=== PATIENT | male | born 1940 | race Caucasian/White ===

== ENCOUNTER → 2016-07-06 | Day surgery (SDC) | payer BC ==
[2016-06-23 09:04] VITALS: Ht 175.3 cm; Wt 72.7 kg
[~2016-07-06] VITALS: Ht 175.3 cm; Wt 72.7 kg
[~2016-07-06] MED LIST: ASPI81TA28 PO; ATOR-26 PO; CARV12.52 PO; LIDOCAINE HCL 2% 2 ML VIAL (20MG/ML) ONE; LISI20TA3 PO; MULT-506 PO; OMEG10007 PO; PARO1TAB27 PO; PROPOFOL IV EMULSION 10 MG/ML 20 ML VIAL IV ONE; RABE20TA5 PO; SODIUM CHLORIDE 0.9% 500ML 500 ML IV ONE
--- NOTE | 2016-07-06 14:15 | Endo History and Physical ---
History & Physical Date of Service: Jul 06, 2016. Chief Complaint: Barretts Referring Physician: Dr Aguirre History of Present Illness 76 yo CM who presents for EGD secondary to Inman's Esophagus. Past Surgical History Hx Cardiac Surgery: Yes (CABG-4 VESSELS, HEART CATH-NO STENTS) Hx Internal Defibrillator: No Hx Pacemaker: No Hx Abdominal Surgery: No Hx of Implantable Prosthesis: No Hx Post-Op Nausea and Vomiting: No Hx Cancer Surgery: No Hx Thoracic Surgery: No Hx Orthopedic: No Hx Urinary Tract Surgery: No Family History None Social History Smoking Status: Light Tobacco Smoker Hx Substance Use: No Hx Alcohol Use: No Allergies Coded Allergies: No Known Allergies (Unverified , 06/23/16) Current Medications Reported Home Medications Medications Dose Route/Sig Max Daily Dose Days Date Category Aciphex (Rabeprazole Sodium) 20 Mg Tab 20 Mg PO QAM 06/23/16 Reported Paxil (Paroxetine HCl) 20 Mg Tab 20 Mg PO QAM 06/23/16 Reported Prinivil (Lisinopril) 20 Mg Tab 20 Mg PO QAM 06/23/16 Reported Coreg (Carvedilol) 12.5 Mg Tab 1 Tab PO BID 90 06/23/16 Reported Lipitor (Atorvastatin Calcium) 80 Mg Tab 80 Mg PO HS 06/23/16 Reported Multivitamin (Multivitamins) Tab 1 Tab PO QAM 12/09/12 Reported Almond-3 (Fish Oil) 1 Ea Cap 1 Cap PO QAM 12/09/12 Reported Aspirin Ec (Aspirin) 81 Mg Tab 81 Mg PO QAM 12/09/12 Reported Vital Signs Weight (Kilograms): 72.73 Height (Feet): 5 Height (Inches): 9 Date Time Temp Pulse Resp B/P Pulse Ox O2 Delivery O2 Flow Rate FiO2 07/06/16 13:24 36.7 60 20 178/75 98 Room Air Physical Exam General Appearance: WD/WN, no apparent distress Respiratory/Chest: Auscultation: breath sounds normal Cardiovascular: Heart Auscultation: RRR Abdomen: Bowel Sounds: normal Inspection & Palpation: soft, non-distended, no tenderness, guarding & rebound Assessment and Plan Assessment: 76 yo CM who presents for EGD secondary to Inman's Esophagus. Plan: Proceed with EGD.
--- NOTE | 2016-07-06 14:41 | Discharge Instructions ---
Endoscopy Patient Instructions Date / Procedure(s) Performed Jul 06, 2016. EGD Allergy Information Coded Allergies: No Known Allergies (Unverified , 06/23/16) Discharge Date / Findings Jul 06, 2016. Gastritis s/p biopsies Inman's Esophagus s/p biopsies Medication Instructions OK to resume all medications today as prescribed. Reported Home Medications Medications Dose Route/Sig Max Daily Dose Days Date Category Aciphex (Rabeprazole Sodium) 20 Mg Tab 20 Mg PO QAM 06/23/16 Reported Paxil (Paroxetine HCl) 20 Mg Tab 20 Mg PO QAM 06/23/16 Reported Prinivil (Lisinopril) 20 Mg Tab 20 Mg PO QAM 06/23/16 Reported Coreg (Carvedilol) 12.5 Mg Tab 1 Tab PO BID 90 06/23/16 Reported Lipitor (Atorvastatin Calcium) 80 Mg Tab 80 Mg PO HS 06/23/16 Reported Multivitamin (Multivitamins) Tab 1 Tab PO QAM 12/09/12 Reported [place]-3 (Fish Oil) 1 Ea Cap 1 Cap PO QAM 12/09/12 Reported Aspirin Ec (Aspirin) 81 Mg Tab 81 Mg PO QAM 12/09/12 Reported Provider Instructions Activity Restrictions - No exercising or heavy lifting for 24 hours. - Do not drink alcohol the day of the procedure. - Do not drive a car or operate machinery until the day after the procedure. - Do not make any important decisions or sign important papers in 24 hours after the procedure. Following Day: - Return to full activity which may include returning to work/school. Diet Start your diet with liquids and light foods (jello, soup, juice, toast). Then eat your usual diet if not nauseated. Treatment For Common After Affects For mild abdominal pain, bloating, or excessive gas: - Rest - Eat lightly - Lie on right side Follow-Up Information Follow-up with Dr Aguirre as scheduled Anesthesia Information What You Should Know You have had a procedure that required some medicine to reduce anxiety and discomfort. This treatment is called moderate sedation. After receiving the treatment, you may be sleepy, but you will be able to breathe on your own. The effects of the treatment may last for several hours. Follow these instructions along with Activity/Diet recommendations noted above: * Do NOT do anything where dizziness or clumsiness would be dangerous. * Rest quietly at home today, then you can be up and about tomorrow. * Have a responsible person stay with you the rest of today. * You may have had an I.V. today. If so, you may take the dressing off later today. Recommendations Call your doctor if: * Trouble breathing * Continuous vomiting for more than 24 hours * Temperature above 101 degrees * Severe abdominal pain or bloating * Pain not relieved by pain medicine ordered * There is increased drainage or redness from any incision * A large amount of rectal bleeding greater than 2-3 tablespoons. (If you had a polyp/s removed or have hemorrhoids, a small amount of blood - from the rectum is to be expected.) * You have any unanswered questions or concerns. IN THE EVENT OF A SERIOUS EMERGENCY, GO TO THE NEAREST EMERGENCY ROOM Your discharge instructions were prepared by provider Ian Ponce. Patient Instructions Signature Page Luis Powers Patient (or Guardian) Signature/Date: I have read and understand the instructions given to me by my caregivers. Caregiver/RN/Doctor Signature/Date: The above-named patient and/or guardian has received patient instructions on this date. + Original Patient Signature Page (only) stays with chart. Please make copy for patient.
--- NOTE | 2016-07-06 15:09 | GI REPORT ---
Procedure Date: 07/06/2016 2:14 PM Procedure: Upper GI endoscopy Indications: Follow-up of Inman's esophagus Medicines: Monitored Anesthesia Care Complications: No immediate complications. Estimated Blood Loss: Estimated blood loss: none. Procedure: Pre-Anesthesia Assessment: - Prior to the procedure, a History and Physical was performed, and patient medications and allergies were reviewed. The patient's tolerance of previous anesthesia was also reviewed. The risks and benefits of the procedure and the sedation options and risks were discussed with the patient. All questions were answered, and informed consent was obtained. Prior Anticoagulants: The patient has taken aspirin, last dose was 1 day prior to procedure. ASA Grade Assessment: III - A patient with severe systemic disease. After reviewing the risks and benefits, the patient was deemed in satisfactory condition to undergo the procedure. After obtaining informed consent, the endoscope was passed under direct vision. Throughout the procedure, the patient's blood pressure, pulse, and oxygen saturations were monitored continuously. The scope was introduced through the mouth, and advanced to the second part of duodenum. The upper GI endoscopy was accomplished without difficulty. The patient tolerated the procedure well. Findings: There were esophageal mucosal changes consistent with short-segment Inman's esophagus present at the gastroesophageal junction. The maximum longitudinal extent of these mucosal changes was 2 cm in length. Mucosa was biopsied with a cold forceps for histology. Localized mild inflammation characterized by erythema was found in the gastric antrum. Biopsies were taken with a cold forceps for histology. The examined duodenum was normal. Impression: - Esophageal mucosal changes consistent with short-segment Inman's esophagus. Biopsied. - Gastritis. Biopsied. - Normal examined duodenum. Recommendation: - Resume previous diet. - Continue present medications. - Await pathology results. - Return to primary care physician as previously scheduled. Ian Ponce DO 07/06/2016 2:46:08 PM This report has been signed electronically. Note Initiated On: 07/06/2016 2:14 PM I attest to the content of the Intraoperative Record and orders documented therein, exceptions below
[2016-07-06 15:12] VITALS: BP 128/58; PULSE 54; O2SAT 96
--- NOTE | 2016-07-06 15:25 | Anesthesiology Progress Note ---
Anesthesia Post Op Note Date & Time Jul 06, 2016 at 15:02 Vital Signs Pain Intensity: 0 Vital Signs Past 12 Hours Date Time Temp Pulse Resp B/P Pulse Ox O2 Delivery O2 Flow Rate FiO2 07/06/16 13:24 36.7 60 20 178/75 98 Room Air Notes Mental Status: alert / awake / arousable, participated in evaluation Pt Amnestic to Procedure: Yes Nausea / Vomiting: adequately controlled Pain: adequately controlled Airway Patency, RR, SpO2: stable & adequate BP & HR: stable & adequate Hydration State: stable & adequate Anesthetic Complications: no major complications apparent
== END | disposition home or self-care (01) ==
LOC: C.GI 12:53
PROVIDERS: ATTEND Internal Medicine
DX: K22.70 Barrett's esophagus without dysplasia (principal); K29.60 Other gastritis without bleeding; F17.200 Nicotine dependence, unspecified, uncomplicated; Z95.1 Presence of aortocoronary bypass graft

== ENCOUNTER → 2016-07-26 | Outpatient (CLI) | payer BC ==
[~2016-07-26] MED LIST changes: -LIDOCAINE HCL 2% 2 ML VIAL (20MG/ML) ONE; -PROPOFOL IV EMULSION 10 MG/ML 20 ML VIAL IV ONE; -SODIUM CHLORIDE 0.9% 500ML 500 ML IV ONE
[2016-07-26 12:35] LABS: BLOOD UREA NITROGEN 16 mg/dl (7-18); BUN/CREATININE RATIO 18.8 (10-20); CALCIUM 8.8 mg/dl (8.5-10.1); CARBON DIOXIDE 27 mmol/L (21-32); CHLORIDE 107 mmol/L (98-107); CREATININE 0.83 mg/dl (0.60-1.40); GLUCOSE 153 mg/dl (70-99); POTASSIUM 4.6 mmol/L (3.5-5.1); SODIUM 140 mmol/L (136-145)
[2016-07-26 12:41] LABS: CHOLESTEROL/HDL RATIO 1.9
[2016-07-26 13:02] LABS: ESTIMATED AVERAGE GLUCOSE 140 mg/dl; HA1C FLAG Normal (Normal)
== END | disposition home or self-care (01) ==
LOC: C.LABPVFM 08:20
PROVIDERS: ATTEND Physician Assistant
DX: I25.5 Ischemic cardiomyopathy (principal); E11.9 Type 2 diabetes mellitus without complications; E78.2 Mixed hyperlipidemia

== ENCOUNTER → 2017-01-29 | Outpatient (CLI) | payer BC ==
[2017-01-29 12:30] LABS: HEMATOCRIT 39.5 % (42-52); MEAN CELL VOLUME 92.9 fL (80-100); MEAN CORPUSCULAR HEMOGLOBIN 31.3 pg (25-34); MEAN CORPUSCULAR HGB CONC 33.7 g/dl (32-36); PLATELET COUNT 188 K/uL (130-400); RED BLOOD COUNT 4.25 M/uL (4.7-6.1); WHITE BLOOD COUNT 7.25 K/uL (4.8-10.8)
[2017-01-29 12:41] LABS: INR 1.1 (0.9-1.1); PROTHROMBIN TIME (PATIENT) 11.6 SECONDS (9.0-12.0)
[2017-01-29 12:57] LABS: ESTIMATED AVERAGE GLUCOSE 146 mg/dl; HA1C FLAG Normal (Normal)
[2017-01-29 13:38] LABS: ALT/SGPT 27 U/L (12-78); AST/SGOT 21 U/L (15-37); BLOOD UREA NITROGEN 17 mg/dl (7-18); BUN/CREATININE RATIO 19.4 (10-20); CALCIUM 8.6 mg/dl (8.5-10.1); CARBON DIOXIDE 23 mmol/L (21-32); CHLORIDE 108 mmol/L (98-107); CREATININE 0.86 mg/dl (0.60-1.40); GLUCOSE 164 mg/dl (70-99); POTASSIUM 4.3 mmol/L (3.5-5.1); SODIUM 139 mmol/L (136-145)
[2017-01-29 13:50] LABS: ALB/GLOB RATIO 1.1 (0.9-2); ALKALINE PHOSPHATASE 112 U/L (45-117); THYROID STIMULATING HORMONE 0.899 uIu/ml (0.300-4.500)
== END | disposition home or self-care (01) ==
LOC: C.LABPVFM 10:32
PROVIDERS: ATTEND Internal Medicine Cardiovascular Disease
DX: Z01.818 Encounter for other preprocedural examination (principal); E11.9 Type 2 diabetes mellitus without complications; R63.4 Abnormal weight loss

== ENCOUNTER 2017-02-08 07:12 | Observation (INO) | payer BC ==
[~2017-02-08] VITALS: Ht 177.8 cm; Wt 67.2 kg
[2017-02-08] VITALS (7 sets, daily range): BP systolic 109–125; BP diastolic 40–49; PULSE 56–62; TEMP 36.5–37; O2SAT 93–99; Ht 177.8 cm; Wt 67.2 kg
[~2017-02-08 07:12] MED LIST changes: +CEFAZOLIN 1000MG IV PUSH 5 ML IV SCH; +LACTATED RINGER'S 1000ML IV SCH
--- NOTE | 2017-02-08 08:28 | History & Physical Bridge Note ---
H&P Re-Evaluation Bridge Note: I have examined the patient, reviewed the History & Physical and in the interval since the performance of the History & Physical I have noted the following changes of clinical significance: No changes noted. I reviewed the indications, procedure, risks and alternatives with the patient and he understands and agrees to proceed. Consent obtained. A dual-chamber ICD will be used to provide bradycardia support as well as protection from life-threatening arrhythmias. Biventricular pacing is not indicated.
--- NOTE | 2017-02-08 08:30 | Procedure Note ---
Pre-Mod Sedation Assessment General Date of Moderate Sedation: Feb 08, 2017. Vital Signs: Vital Signs Past 12 Hours Date Time Temp Pulse Resp B/P (MAP) Pulse Ox O2 Delivery O2 Flow Rate FiO2 02/08/17 07:54 36.7 56 18 125/40 (68) 99 Room Air Review Cardiovascular: regular rate, rhythm, + bradycardia Abdomen: normal bowel sounds, non tender Lungs: lungs clear Pre-Sedation Airway Assessment Oral Cavity: Dentures Short Thick Neck: No Hx of Sleep Apnea: No Smoking Status: Light Tobacco Smoker Mallampati Classification: Class II ASA Classification: Class III Procedure Planning Contraindications-for Mod Sed: None Yes Notes The planned sedation has been discussed with the patient and consent obtained. I have identified the patient, determined the appropriateness of sedation and have assessed the patient immediately prior to the procedure. All medicine(s) and interventions are by my order.
[2017-02-08] MEDS ORDERED: BACITRACIN OINT 0.9 GM PKT ONE (09:39)
[2017-02-08] MEDS ORDERED: BACITRACIN 50000 UNIT VIAL ONE (09:39)
[2017-02-08] MEDS ORDERED: LIDOCAINE HCL 1% 20 ML VIAL ONE (09:39)
[2017-02-08] MEDS ORDERED: MIDAZOLAM HCL 5 MG/ML 1 ML VIAL ONE (09:56)
[2017-02-08] MEDS ORDERED: FENTANYL CITRATE INJ 50 MCG/1 ML 2 ML VIAL ONE (09:56)
--- NOTE | 2017-02-08 11:05 | [facility] Operative Report ---
Operative Report Operative Date Feb 08, 2017. Pre-Operative Diagnosis Cardiomyopathy Sinus bradycardia Class II congestive heart failure Post-Operative Diagnosis same Procedure(s) Performed Dual-chamber ICD implantation Surgeon Dr. Gandhi Pathology Supervisor Surgeon(s) none Estimated Blood Loss 20 cc Findings Good lead position, acceptable measurements Specimens None Anesthesia local with sedation Complication(s) None Disposition PCU Description of Procedure After obtaining informed consent for the procedure, the patient was brought to the laboratory and prepped and draped in the standard sterile manner. The left prepectoral region was anesthetized with 1% lidocaine local anesthetic and left axillary venipuncture was performed by percutaneous technique and a guidewire placed through the left subclavian vein into the superior vena cava. The area was further infiltrated with 1% lidocaine local anesthetic and a 7 cm incision was made parallel to the left clavicle and 2 cm below it and carried down to the anterior pectoralis fascia. An ICD pocket was formed by blunt dissection anterior to the pectoralis fascia and a bacitracin-soaked sponge (50,000 units in 50 cc normal saline solution) was placed in the pocket. A 10.5 [place] Medtronic lead introducer was placed over the guidewire into the left subclavian vein, the dilator and guidewire were removed and a bipolar dual coil active fixation steroid tipped ventricular ICD lead was advanced through the introducer into the superior vena cava. A guidewire was placed through the introducer and the introducer was stripped from the lead and guidewire. An 8 [place] Medtronic lead introducer was placed over the guidewire into the left subclavian vein, the dilator and guidewire were removed and a bipolar active fixation steroid tipped atrial lead was advanced through the introducer into the superior vena cava. A guidewire was placed back through the introducer and the introducer was stripped from the lead and guidewire. Using a curved stylette the ventricular lead was advanced through the right ventricular outflow tract into the pulmonary artery and then using a straight stylette was positioned in the right ventricular apex. The screw was extended fixing the lead in position. Pacing and sensing thresholds were evaluated in bipolar configuration and are recorded on the implant data sheet. Using a curved stylette the atrial lead was positioned in the region of the atrial appendage and the screw extended fixing the lead in position. Pacing and sensing thresholds were evaluated in bipolar configuration and are recorded on the implant data sheet. Once the leads were in position they were attached to the anterior pectoralis fascia using 2 sutures of 2-0 silk around each lead collar. The bacitracin- soaked sponge was removed from the pocket, hemostasis was obtained, the ICD was attached to the leads and placed in the pocket with the leads coiled beneath it. The incision was closed with a running double subcutaneous closure of 3-0 V- Lock absorbable suture, followed by running subcuticular skin closure of 4-0 Vicryl absorbable suture. Bacitracin ointment was placed on the incision and a pressure dressing applied. I attest to the content of the Intraoperative Record and any orders documented therein. Any exceptions are noted below.
--- NOTE | 2017-02-08 11:06 | Procedure Note ---
Post-Mod Sedation Assessment General Date of Moderate Sedation Feb 08, 2017. Vital Signs: Vital Signs Past 12 Hours Date Time Temp Pulse Resp B/P (MAP) Pulse Ox O2 Delivery O2 Flow Rate FiO2 02/08/17 07:54 36.7 56 18 125/40 (68) 99 Room Air Review - Discharge Criteria Vital Signs Stable: Yes Alert/Oriented/Conversant: Yes Returned to Baseline Mental St: Yes Nausea Absent/Minimal: Yes Pain/Discomfort/Absent/Minimal: Yes Normal/Baseline Respirations: Yes Active Bleeding?: No
[2017-02-08] MEDS ORDERED: KETOROLAC TROMETHAMINE 10 MG TAB PO PRN (11:15)
[2017-02-08] MEDS ORDERED: IV FLUIDS COMPLETED PRN (12:15)
[2017-02-08] MEDS ORDERED: CEFAZOLIN 1000MG IV PUSH 5 ML IV SCH (14:00)
[2017-02-08] MEDS: CEFAZOLIN IV 1,000 MG in SYRINGE 0 ML IV SCH ×2 (15:19→23:59)
[2017-02-08] MEDS: ACETAMINOPHEN 325 MG TAB PO PRN ×2 (15:29→23:59)
[2017-02-08] MEDS: CARVEDILOL 12.5 MG TAB PO SCH (20:12)
[2017-02-08] MEDS ORDERED: ATORVASTATIN 40 MG TAB PO SCH (21:00)
[2017-02-09 03:41] VITALS: BP 112/44; PULSE 64; TEMP 37; O2SAT 94
--- NOTE | 2017-02-09 06:44 | DIAGNOSTIC IMAGING REPORT ---
CHEST 2 VIEWS ROUTINE HISTORY: 77 years-old Male EXACT TIME ORDERED Evaluate for pneumothorax and lead placement status post placement of a pacer/AICD COMPARISON: Chest radiograph 04/18/2013 TECHNIQUE: Frontal and lateral views of the chest FINDINGS: The cardiomediastinal and hilar silhouettes are within normal limits. Prior median sternotomy with inferior most sternotomy wire fractured, unchanged. Left pectoral pacer/AICD has been placed with leads overlying the region of the right atrium and right ventricle. The more proximal lead is projected superiorly. There is no postprocedural pneumothorax identified. No pleural effusion, focal airspace consolidation or overt pulmonary edema. Emphysematous changes are noted with hyperinflation and areas of interstitial coarsening which are chronic. Mild biapical pleural-parenchymal scarring. Degenerative changes involve the spine and shoulders. The bones are mildly demineralized. Multiple remote left rib fractures. IMPRESSION: Status post placement of a left subclavian pacer/AICD without postprocedural pneumothorax. The above report was generated using voice recognition software. It may contain grammatical, syntax or spelling errors. Electronically signed by: Ata Dyson M.D. 02/09/2017 6:43 AM Dictated Date/Time: 02/09/2017 6:41 AM
[2017-02-09 07:27] VITALS: BP 119/50; PULSE 61; TEMP 36.8; O2SAT 95
[2017-02-09] MEDS: CEFAZOLIN IV 1,000 MG in SYRINGE 0 ML IV SCH (07:36)
[2017-02-09] MEDS: CARVEDILOL 12.5 MG TAB PO SCH (07:37)
[2017-02-09 08:00] VITALS: O2SAT 95
[2017-02-09] MEDS ORDERED: ASPIRIN 81 MG ECTAB PO SCH (09:00)
[2017-02-09] MEDS ORDERED: LISINOPRIL 20 MG TAB PO SCH (09:00)
[2017-02-09] MEDS ORDERED: PAROXETINE 20 MG TAB PO SCH (09:00)
--- NOTE | 2017-02-09 09:11 | Discharge Instructions ---
Discharge Instructions Date of Service Feb 09, 2017. Admission Cardiomyopathy, sinus bradycardia Discharge Discharge Diagnosis / Problem: Status post dual-chamber ICD implantation Discharge Goals Goal(s): Improve disease control Activity Recommendations Activity Limitations: as noted below ACTIVITY RECOMMENDATIONS: * Do not raise affected arm over head for 2 weeks. SPECIAL CARE INSTRUCTIONS: * If bleeding occurs, apply direct pressure to area for 5 minutes. * Call your doctor if you have severe pain, fever, drainage or bleeding at site. * Keep dressing on and dry for 48 hours then remove. * Keep any scheduled doctor's appointment. * Implant Card - hand held device with website information given. SKIN IRRITATION: * You may experience some redness and/or swelling in the area where radiation was administered. If any skin irritation occurs, please contact your family physician. FOLLOW UP VISIT: 02/12/17 @ 10:30 am for incision check 03/21/17 @ 1:30 pm for device check . Current Hospital Diet Patient's current hospital diet: AHA Diet (Heart Healthy) Discharge Diet Recommended Diet: AHA Diet (Heart Healthy) Pending Studies Studies pending at discharge: no Laboratory Results Hemoglobin A1c Test 01/29/17 10:40 Range/Units Estimated Average Glucose 146 mg/dl Hemoglobin A1c 6.7 H 4.5-5.6 % Medical Emergencies . Who to Call and When: Medical Emergencies: If at any time you feel your situation is an emergency, please call 911 immediately. . Non-Emergent Contact Non-Emergency issues call your: Engineering Instructor . . "Provider Documentation" section prepared by Rain Miranda. . VTE Core Measure Inpt VTE Proph given/why not?: Treatment not indicated
--- NOTE | 2017-02-09 09:40 | Cardiology Follow-Up ---
Subjective Date of Service: Feb 09, 2017. Pt evaluation today including: conversation w/ patient, physical exam, lab review, review of studies, review of inpatient medication list History of Present Illness Feels well POD#1, no complaints. No significant incisional discomfort. Social History Smoking Status: Current Every Day Smoker History of Alcohol Use: No Review of Systems Respiratory: No shortness of breath Cardiac: No chest pain Minor incisional discomfort Objective Vital Signs Past 12 Hours Date Time Temp Pulse Resp B/P (MAP) Pulse Ox O2 Delivery O2 Flow Rate FiO2 02/09/17 07:27 36.8 61 18 119/50 (73) 95 Room Air 02/09/17 04:00 Room Air 02/09/17 03:41 37.0 64 19 112/44 (66) 94 Room Air 02/08/17 23:59 Room Air 02/08/17 23:58 37.0 61 20 113/48 (69) 93 Room Air Last Recorded Weight-Kilograms: 67.200 Physical Exam Constitutional: Level of Distress: NAD Lungs: Auscultation: breath sounds normal Cardiovascular: Heart Auscultation: RRR, no murmurs Extremities: no edema Incision clean and dry, no hematoma. Data Imaging: CXR shows no pneumothorax, good lead position EKG: Atrial pacing with intact AV conduction Telemetry reviewed: Atrial pacing throughout ICD evaluation: Good lead measurements Assessment and Plan 1. POD#1: Doing well post ICD implant, good lead position and measurements, site looks good. Stable for discharge.
[2017-02-09 09:55] VITALS: BP 119/50; PULSE 61; TEMP 36.8; O2SAT 95
--- NOTE | 2017-02-09 12:22 | Discharge Summary ---
Discharge Summary Admission Date: Feb 08, 2017 at 11:11 Discharge Date: Feb 09, 2017 Discharge Disposition: Home Primary Diagnosis: Cardiomyopathy Secondary Diagnoses/Problems: Sinus bradycardia Class II CHF Procedures: Dual-chamber ICD implantation Discharge Instructions Last Recorded Wt (Kilograms): 67.200 Activity Recommendations: limitations as noted below Diet At Discharge: low sodium, low cholesterol Allergies: Coded Allergies: No Known Allergies (Unverified , 02/08/17) Additional Instructions: ACTIVITY RECOMMENDATIONS: * Do not raise affected arm over head for 2 weeks. SPECIAL CARE INSTRUCTIONS: * If bleeding occurs, apply direct pressure to area for 5 minutes. * Call your doctor if you have severe pain, fever, drainage or bleeding at site. * Keep dressing on and dry for 48 hours then remove. * Keep any scheduled doctor's appointment. * Implant Card - hand held device with website information given. SKIN IRRITATION: * You may experience some redness and/or swelling in the area where radiation was administered. If any skin irritation occurs, please contact your family physician. FOLLOW UP VISIT: Keep any scheduled doctor appointments. Special Care: Call your doctor if: * Temperature above 101 degrees * Pain not relieved by pain medicine ordered * There is increased drainage or redness from any incision * You have any unanswered questions or concerns. Avoid all tobacco products. If you need help to stop smoking, call [place]'s FREE QUITLINE at . This is a free call. Admission HPI This is a very pleasant 77-year-old gentleman who has a history of coronary artery disease. He had a myocardial infarction in 1984, in 2005 he had significant coronary artery disease and a moderately reduced left ventricular ejection fraction and underwent bypass surgery. In 2010 he had an excellent exercise tolerance and had moderate left ventricular dysfunction at that time as well but no evidence of ischemia. More recently he has been identified as having left ventricular dysfunction, his medications were titrated but he had difficulty tolerating them. His ejection fraction on echocardiography 11/13/2013 was 25-30%, however on echocardiography 11/11/2015 his ejection fraction appears to have improved to 40 % and remained there on 06/14/2016. His lisinopril and carvedilol had been titrated upwards, however he had difficulty with orthostatic symptoms. He was not able to tolerate 40 mg daily of lisinopril due to orthostatic symptoms, therefore that was dropped back to 20 mg daily with some improvement. He has also been noted to be bradycardic and he has remained on carvedilol 12.5 mg twice a day. He does have some difficulty with exertion, he feels that even with relatively minor exertion he has significant shortness of breath. We therefore reduced his carvedilol to 6.25 mg twice a day and arranged a stress echo. He continues to have difficulty with exertion but no exertional chest discomfort , he is quite short of breath just walking down to the mail and back. He and his feel that this might be getting worse. His orthostasis is a little bit better since cutting back on the carvedilol but now he is on markedly reduced doses of his heart failure medications. He does not have orthopnea, PND or peripheral edema. He has had no lightheadedness, dizziness, palpitations. Admission Physical Exam Additional Comments: Constitutional: Alert, cooperative and in no distress. HEENT: Unremarkable Neck: No jugular venous distention, carotid pulses are normal and equal bilaterally without bruits. Pulmonary: Clear to auscultation bilaterally. Cardiac: Regular slow rhythm with no murmur, gallop or rub. Abdomen: Soft, nontender with normal bowel sounds. Extremities: No edema. Distal pulses intact. Neurologic: No focal findings. Gait is steady. Skin: No rash, ecchymoses or petechiae. Hospital Course Patient is a 77-year-old male with a cardiomyopathy, CHF, and sinus bradycardia who underwent implantation of a dual-chamber ICD on 02/08/[address] Gandhi. He tolerated the procedure well. Device check the following day showed excellent sensing and pacing characteristics. CXR showed good lead placement and no evidence of pneumothorax. He was deemed stable for discharge home on . He will have follow-up in 3 days for an incision check and in 1 month for device check. Total time spent on discharge = This includes examination of the patient, discharge planning, medication reconciliation, and communication with other providers.
== END 2017-02-09 10:32 | disposition home or self-care (01) ==
LOC: C.ACU 07:12 → ENRESERV 10:25 → C.2E 11:11
PROVIDERS: ADMIT Internal Medicine Cardiovascular Disease; ATTEND Internal Medicine Cardiovascular Disease
DX: I42.9 Cardiomyopathy, unspecified (principal); R00.1 Bradycardia, unspecified; I50.9 Heart failure, unspecified; I11.0 Hypertensive heart disease with heart failure; I25.10 Atherosclerotic heart disease of native coronary artery without angina pectoris; I73.9 Peripheral vascular disease, unspecified; R06.09 Other forms of dyspnea; R42 Dizziness and giddiness; E78.2 Mixed hyperlipidemia; E11.9 Type 2 diabetes mellitus without complications; F32.9 Major depressive disorder, single episode, unspecified; J44.9 Chronic obstructive pulmonary disease, unspecified; K20.9 Esophagitis, unspecified; Z95.1 Presence of aortocoronary bypass graft; F17.210 Nicotine dependence, cigarettes, uncomplicated; Z79.82 Long term (current) use of aspirin; Z79.899 Other long term (current) drug therapy; Z83.79 Family history of other diseases of the digestive system; Z82.49 Family history of ischemic heart disease and other diseases of the circulatory system

== ENCOUNTER → 2017-06-26 | Outpatient (CLI) | payer BC ==
[~2017-06-26] MED LIST changes: -CEFAZOLIN 1000MG IV PUSH 5 ML IV SCH; -LACTATED RINGER'S 1000ML IV SCH
--- NOTE | 2017-06-26 16:17 | DIAGNOSTIC IMAGING REPORT ---
CHEST 2 VIEWS ROUTINE CLINICAL HISTORY: ACUTE BRONCHITIS dyspnea COMPARISON STUDY: 02/09/2017 FINDINGS: Moderate stable emphysematous change. Permanent bipolar cardiac pacemaker/fibrillator with leads unchanged in position. Several old healed left-sided rib fractures. Minimal atelectasis left base versus minimal well-defined focal infiltrate. IMPRESSION: Emphysematous change. Minimal infiltrate versus atelectasis left base. The above report was generated using voice recognition software. It may contain grammatical, syntax or spelling errors. Electronically signed by: Fred Bonilla M.D. 06/26/2017 4:16 PM Dictated Date/Time: 06/26/2017 4:14 PM
== END | disposition home or self-care (01) ==
LOC: C.RADPV 16:02
PROVIDERS: ATTEND Family Medicine
DX: J20.9 Acute bronchitis, unspecified (principal)

== ENCOUNTER → 2017-08-15 | Outpatient (CLI) | payer BC ==
--- NOTE | 2017-08-15 15:42 | DIAGNOSTIC IMAGING REPORT ---
CHEST 2 VIEWS ROUTINE HISTORY: Short of breath. COMPARISON: Chest 06/26/2017. FINDINGS: The lungs are hyperexpanded with apical predominant emphysematous changes. No new focal lung consolidations to suggest pneumonia. No evidence for pulmonary edema. Mild biapical pleural thickening remains unchanged. The heart is normal in size. Poststernotomy changes. Left-sided pacemaker/defibrillator. Old, healed left-sided rib fractures. IMPRESSION: No significant change compared to the prior study. No acute process. Advanced emphysema is again noted. Electronically signed by: Brady Qureshi M.D. 08/15/2017 3:41 PM Dictated Date/Time: 08/15/2017 3:35 PM
== END | disposition home or self-care (01) ==
LOC: C.RADPV 15:17
PROVIDERS: ATTEND Family Medicine
DX: R06.02 Shortness of breath (principal)

== ENCOUNTER → 2017-09-12 | Outpatient (CLI) | payer BC ==
--- NOTE | 2017-09-12 11:27 | DIAGNOSTIC IMAGING REPORT ---
(CHEST) THORAX WITHOUT CT DOSE: 301.16 mGy.cm HISTORY: CHRONIC COUGH, short of breath,TOBACCO USE TECHNIQUE: Multiaxial CT images of the chest were performed without contrast. A dose lowering technique was utilized adhering to the principles of ALARA. COMPARISON: Chest 08/15/2017. FINDINGS: The central airways are patent. No pleural effusions. No pneumothorax. Severe emphysema. Biapical pleural-parenchymal scarring. This is more pronounced on the right. There is a focal 2.4 x 2.0 cm irregular opacity. This could also represent an area of scarring. Mild interstitial thickening at the lung bases. This is likely chronic. Otherwise, no focal lung consolidations to suggest pneumonia. No evidence for pulmonary edema. There are postoperative changes and a left-sided dual-chamber pacemaker. Old, healed left-sided rib fractures. Healing left anterolateral seventh and eighth rib fractures. The visualized unenhanced liver, spleen, and adrenal glands are unremarkable. Subcentimeter mediastinal lymph nodes do not meet CT criteria for pathologic involvement. No hilar lymphadenopathy. The heart is normal in size. Normal caliber thoracic aorta containing mild calcified plaque. 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 IMPRESSION: 1. Advanced emphysema. 2. A 2.4 x 2.0 cm irregular right apical opacity which abuts the pleura. This favors an area of scarring. However, a follow-up chest CT in 3 months is recommended to ensure stability and to exclude the less likely possibility of a pulmonary lesion. 3. Healing left anterolateral seventh and eighth rib fractures. No pneumothorax. Electronically signed by: Brady Qureshi M.D. 09/12/2017 11:26 AM Dictated Date/Time: 09/12/2017 11:15 AM
== END | disposition home or self-care (01) ==
LOC: C.CTS 10:55
PROVIDERS: ATTEND Physician Assistant
DX: R06.02 Shortness of breath (principal); F17.209 Nicotine dependence, unspecified, with unspecified nicotine-induced disorders; R05 Cough; J43.9 Emphysema, unspecified

== ENCOUNTER 2022-12-05 18:30 | Observation (INO) ==
--- NOTE | 2022-12-05 18:38 | ED Triage Note ---
Date of Service December 05, 2022 History of Present Illness This patient was briefly evaluated while in triage. An abbreviated physical exam was performed. This patient is a 82-year-old Male who presents to the ED for evaluation of inuries status post fall. He passed out/blacked out after standing. He notes neck and shoulder pain. He was out for an unknown period of time. Fell at 3pm. Physical Exam GENERAL: 82 year old male. In no acute distress. SKIN: Skin tear to the left forearm and abrasion to the bridge of the nose. HEART: Regular rate and rhythm. LUNGS: Clear to auscultation. NEURO: Alert and oriented. No deficits. MUSCULOSKELETAL: No deformities to inspection of the extremities. PSYCH: Patient is pleasant and answers all questions appropriately. Initial orders for labs and / or imaging were placed and patient was placed in the waiting area until a bed is available. Please see further documentation for the full ED course.
[2022-12-05 20:34] LABS: Basophils # (auto) 0.05 K/uL (0-0.2); Basophils % (auto) 0.4 %; Eosinophils # (auto) 0.14 K/uL (0-0.50); Hematocrit (blood only) 39.9 % (42.0-52.0); Hemoglobin 13.4 g/dl (14.0-18.0); Immature Granulocytes # (auto) 0.07 K/uL (0.01-0.20); Immature Granulocytes % (auto) 0.5 %; Lymphocytes # (auto) 2.34 K/uL (1.2-3.4); Lymphocytes % (auto) 17.1 %; Mean Corpuscular Hemoglobin 31.9 pg (25.0-34.0); Mean Corpuscular Hgb Conc 33.6 g/dL (32.0-36.0); Mean Platelet Volume 9.8 fL (9.4-12.4); Monocytes # (auto) 0.86 K/uL (0.11-0.59); Monocytes % (auto) 6.3 %; Neutrophils # (auto) 10.22 K/uL (1.40-6.50); Neutrophils % (auto) 74.7 %; Platelet Count 174 K/uL (130-400); RDW Coefficient of Variation 12.8 % (11.5-14.5); RDW Standard Deviation 44.5 fL (36.4-46.3); White Blood Count 13.68 K/ul (4.8-10.8)
--- NOTE | 2022-12-05 20:37 | CT Scan Report ---
Exam(s): CT HEAD Without Contrast EXAM: CT Head Without Intravenous Contrast CLINICAL HISTORY: Reason for exam: Syncope, fall. TECHNIQUE: Axial computed tomography images of the head/brain without intravenous contrast. Automated exposure control was utilized for the study. A dose lowering technique was utilized adhering to the principles of ALARA. COMPARISON: None FINDINGS: Brain: No acute infarct or hemorrhage identified. No extra-axial fluid collection. No mass effect or midline shift. Scattered areas of hypoattenuation in the supratentorial white matter likely represent chronic small vessel ischemic changes. Ventricles and sulci: Prominence of the ventricles and sulci is likely secondary to cerebral volume loss. Bones: Normal. No bony lesion or acute fracture. Subcutaneous tissues: Normal. Sinuses: Mild mucosal thickening in the right ethmoid air cells. Mastoid air cells: Small amount of fluid in the mastoid air cells. Orbits: Grossly unremarkable. Other: Atherosclerotic calcifications in the intracranial vasculature. IMPRESSION: 1. No acute intracranial abnormality. 2. Chronic small vessel ischemic changes and cerebral volume loss. Electronically signed by: Neva Thompson M.D. 12/05/22 20:36 PM
[2022-12-05 20:42] LABS: Appearance Urine Clear (Clear); Bacteria Urine Automated Negative (Negative); Bilirubin Urine Negative (Negative); Blood Urine Negative (Negative); Cast Urine Automated 0 /lpf (0-5); Color Urine Yellow; Epithelial Cell Urine Auto 20-30 /lpf (0-5); Glucose Urine UA Trace (Negative); Ketones Urine Negative (Negative); Leukocyte Esterase Urine 1+ (Negative); Nitrite Urine Negative (Negative); Protein Urine Negative (Negative); RBC Urine Automated 0-4 /hpf (0-4); Urobilinogen Urine Negative (Negative)
--- NOTE | 2022-12-05 20:42 | CT Scan Report ---
Exam(s): CT C SPINE EXAM: CT Cervical Spine Without Intravenous Contrast CLINICAL HISTORY: Reason for exam: Fall, neck pain. TECHNIQUE: Axial computed tomography images of the cervical spine without intravenous contrast. Automated exposure control was utilized for the study. A dose lowering technique was utilized adhering to the principles of ALARA. COMPARISON: None FINDINGS: Bones: Normal alignment. No acute fracture or bony lesion. Disc spaces: No subluxation. Degenerative changes of the spine. Soft tissues: Normal. Other: Small amount of fluid in the mastoid air cells. Atherosclerotic changes of the vasculature. Scarring and emphysematous changes at the lung apices. Pacer wires partially visualized on the left. IMPRESSION: No acute traumatic abnormality. Electronically signed by: Neva Thompson M.D. 12/05/22 20:41 PM
[2022-12-05 20:54] LABS: Albumin Globulin Ratio 1.4 (0.9-2); Albumin Level 4.1 gm/dl (3.4-5.0); BUN Creatinine Ratio 18.6 (10-20); Bilirubin,Total 0.5 mg/dl (0.2-1.0); Calcium 8.9 mg/dl (8.6-10.3); Creatinine Clr Calc Pharmacy 65.9 ml/min; Est GFR (African American) 92.9 ml/min; Est GFR (Non-African American) 80.2 ml/min; Potassium 4.6 mmol/L (3.5-5.1); Total Protein 7.1 gm/dl (6.0-8.3)
[2022-12-05 21:04] LABS: INR 1.1 (0.9-1.1); Partial Thromboplastin Ratio 0.9; Partial Thromboplastin Time 25.8 Seconds (21.0-31.0); Prothrombin Time 12.2 Seconds (9.0-12.0)
--- NOTE | 2022-12-05 21:52 | Emergency Department Note ---
Impression & Plan Syncope and collapse, CHI (closed head injury), Multiple abrasions, Elevated troponin, Skin tear of left forearm without complication ED Provider Note INFORMANT: Patient and family ED PROVIDER(S): Terrell Quigley MD CHIEF COMPLAINT: Syncope PLAN: Disposition: Admitted Condition: Good Outpatient prescription management: none Referral: None MEDICAL DECISION MAKING: Patient presented because of syncopal episode that was very brief without much prodrome at all. He appeared to be unconscious prior to hitting the ground as he did not stop himself striking his head forehead and face directly on the ground. Clinically no sign of fracture. CT imaging of head and neck does not reveal any acute traumatic injury. Without treatment patient's neck pain resolved. Patient has multiple abrasions and skin tears and nothing amenable to suturing or even Dermabond treatment for the tears. Patient has a slight leukocytosis but had no symptoms to suggest infectious etiologies prior to the event. His chest x-ray was unremarkable. ECG showed a paced rhythm. Cardiac monitoring confirmed this. UA was unremarkable. The patient had his pacemaker interrogated. Patient did have a nonsustained episode of V. tach 2 weeks ago but nothing tonight per the [employer] admitting representative. Given the episode of syncope and the fact that the patient has a slightly elevated cardiac troponin further management in the hospital will be necessary. Consultation was made with Dr. Blaise Quiñonez of the [facility] service. Patient was evaluated in the ER for further management. Discussed with manager business information After review of the information above and other included data, I feel the patient requires admission. Triage Nursing notes reviewed and agree them. Vital Signs: reviewed and remarkable for no significant abnormalities Prior /Outside records reviewed: none Differential diagnosis: Vasovagal event, dehydration, infection, hypoglycemia, electrolyte abnormalities, cardiac sources, intracerebral event, pulmonary embolism, seizure, toxicologic, neurologic, fracture, as well as other pathologies. Diagnostics, as interpreted by me: ECG: Twelve-lead ECG reveals an atrial paced rhythm with prolonged AV conduction at 90 bpm. Anterior Q waves present. No ST elevation appreciated. Cardiac Monitoring: Cardiac monitoring ordered by me: The patient was placed on continuous cardiac monitoring and observed. Paced rhythm at 61 bpm. Medical decision rules: none Imaging studies: CT imaging and chest x-ray as above. I refer you to the EMR for further details. HPI: The patient is a 82year old-male with a past medical history pacemaker and ischemic cardiomyopathy of who presents to the Emergency Room with complaints of syncope. This started this afternoon described as sudden onset. Patient states he was seated at home and then stood up. He and is felt somewhat lightheaded f or a second and then woke up on the ground. He did strike his face and head on the ground as well as his left forearm. He also noted an abrasion to the right knee. The patient also notes the following associated symptoms, mild neck pain. The patient has Taken no medication for relieving factors. Current pain is rated as 5/10. Denies any recent illness. Pt denies headache, fevers, chills, diaphoresis, visual changes, chest pain, breathing difficulties, nausea, vomiting, abdominal pain, back pain, melena, hematochezia, urinary symptoms, numbness, weakness, lymphadenopathy, rash, or other complaints. PAST MEDICAL HISTORY: See Below, ischemic cardiomyopathy PAST SURGICAL HISTORY:Pacemaker, hypertension, COPD, SOCIAL HISTORY: See Below, HOME MEDICATIONS: See Below ALLERGIES: See Below VITALS: See Below PHYSICAL EXAMINATION: GENERAL: Awake, alert, well-appearing, in no distress HENT: Normocephalic, forehead contusion and abrasion noted. Abrasion to the bridge of the nose without bony deformity or tenderness. No epistaxis. Oropharynx unremarkable. EYES: Normal conjunctiva. Sclera non-icteric. NECK: Inspection normal. Non-tender. Supple. No nuchal rigidity. FROM. No masses. RESPIRATORY: Clear to auscultation. No wheezes. No rales. Normal respiratory effort. CARDIAC: Normal rate. Normal rhythm. No rubs. Extremities warm and well perfused. Pulses equal. No JVD. GI: Soft, non-distended. No tenderness to palpation. No rebound or guarding. No masses. RECTAL: Deferred. MUSCULOSKELETAL: Right upper extremity and left lower extremity are atraumatic. Left upper extremity examination reveals no bony deformity or tenderness however there is a large skin tear over the volar/ulnar aspect of the forearm. Mild abrasion noted to the anterior aspect of the right knee. No bony deformity or abnormality. Chest examination reveals no tenderness. The back is symmetrical on inspection without obvious abnormality. There is no CVA tenderness to palpation. No joint edema. LOWER EXTREMITIES: Calves are equal size bilaterally and non-tender. No edema. No discoloration. NEURO: Normal sensorium. No sensory or motor deficits noted. SKIN: No rash or jaundice noted. Systolic ejection murmur Past Med/Surg History Medical History Aortic aneurysm Aortic valve sclerosis Barretts esophagus CAD (coronary artery disease) Cardiomyopathy Chronic cough Diabetes mellitus Inguinal hernia Raynaud's disease Sinus bradycardia Solitary pulmonary nodule Surgical History H/O heart surgery Family History Daughter Crohn's colitis Unknown Heart disease Other Myocardial infarction Denies family history of Ovarian cancer Prostate cancer Breast cancer Colorectal cancer Social History (Updated 08/08/22 @ 10:17 by Flori Fulton LPN) Smoking Status: Current every day smoker Tobacco Type: Cigarettes Age Started Using Tobacco: 17; Cigarettes Per Day: 10; Second Hand Exposure: Yes; Do You Dip or Chew Tobacco: No; Hx Alcohol Use: No Hx Substance Use: No Preferred Language: Kenyan Communication Ability: Effective Hearing Ability: 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 Beliefs That Will Affect Care: None marital status: Current Living Situation: Spouse current occupational status: retired How many Children do You have: 3 Feels Safe at Home: Yes Childhood Exposure to Second-Hand Smoke: Yes Diet: regular caffeine: Yes Dental Care, Regularly: Yes Physical Activity Frequency: 3-4 Times per Week Seatbelt Use: always Sunscreen Use: No Allergies Allergies Allergy/AdvReac Type Severity Reaction Status Date / Time No Known Drug Allergies Allergy Unknown Verified 12/05/22 21:36 Home Meds Home Medications Medication Instructions Recorded Confirmed multivitamin (Multiple Vitamins 1 tab PO DAILY 12/05/18 12/05/22 tablet) cholecalciferol (vitamin D3) 25 1,000 units PO DAILY #90 tabs 12/13/18 12/05/22 mcg (1,000 unit) tablet mecobalamin (vitamin B12) 1,000 1,000 mcg PO DAILY 08/14/22 12/05/22 mcg lozenges aspirin 81 mg tablet,delayed 81 mg PO DAILY 12/05/22 12/05/22 release carvedilol 25 mg tablet 25 mg PO BID 12/05/22 12/05/22 paroxetine HCl 20 mg tablet 20 mg PO DAILY 12/05/22 12/05/22 Previous Rx's Medication Instructions Recorded guaifenesin 600 mg tablet, 600 mg PO BID PRN congestion #120 11/09/21 extended release 12 hr (Mucinex) tabs albuterol sulfate 90 mcg/actuation 2 inh inhalation Q6H PRN shortness 06/05/22 aerosol inhaler (Ventolin HFA) of breath or wheezing #6.7 grams budesonide 160 mcg-glycopyr 9 2 inh inhalation BID #10.7 grams 06/05/22 mcg-formot 4.8 mcg/actuation HFA inhaler (Breztri Aerosphere) rabeprazole 20 mg tablet,delayed 20 mg PO DAILY #90 tabs 06/22/22 release glimepiride 2 mg tablet 2 mg PO QAM #90 tabs 10/04/22 losartan 25 mg tablet 25 mg PO DAILY #90 tabs 10/17/22 atorvastatin 80 mg tablet 80 mg PO HS #90 tabs 11/03/22 Results & Data (ED) Vital Signs Vital Signs - 24 hr 12/05/22 18:36 12/05/22 21:00 12/05/22 21:15 Temperature 36.9 C Temperature Source Temporal Artery Scan Pulse Rate 78 61 63 Pulse Rate from SpO2 Sensor Respiratory Rate 20 18 Respiratory Effort / Characteristics Non-Labored Respiratory Depth Normal Blood Pressure 118/61 Blood Pressure Mean 80 Pulse Oximetry 94 96 Oxygen Delivery Method Room Air Room Air Sepsis Recent Fever Within 48 Hours No Sepsis New/Unexplained Change in Mental Status No Sepsis Action Taken by Nursing No Action Required 12/05/22 22:00 12/05/22 22:30 Temperature Temperature Source Pulse Rate 60 60 Pulse Rate from SpO2 Sensor 59 L 60 Respiratory Rate 19 18 Respiratory Effort / Characteristics Respiratory Depth Blood Pressure 140/67 138/69 Blood Pressure Mean 91 92 Pulse Oximetry 94 94 Oxygen Delivery Method Room Air Room Air Sepsis Recent Fever Within 48 Hours Sepsis New/Unexplained Change in Mental Status Sepsis Action Taken by Nursing Laboratory Data 12/05/22 19:37 12/05/22 19:37 Lab Results 12/05/22 12/05/22 12/05/22 Range/Units 19:37 19:37 19:37 WBC 13.68 H (4.8-10.8) K/ul RBC 4.20 L (4.70-6.10) M/uL Hgb 13.4 L (14.0-18.0) g/dl Hct 39.9 L (42.0-52.0) % MCV 95.0 (80.0-100.0) fL MCH 31.9 (25.0-34.0) pg MCHC 33.6 (32.0-36.0) g/dL RDW Std Deviation 44.5 (36.4-46.3) fL RDW Coeff of [place] 12.8 (11.5-14.5) % Plt Count 174 (130-400) K/uL MPV 9.8 (9.4-12.4) fL Immature Gran % (Auto) 0.5 % Neut % (Auto) 74.7 % Lymph % (Auto) 17.1 % [place] % (Auto) 6.3 % Eos % (Auto) 1.0 % Baso % (Auto) 0.4 % Neut # (Auto) 10.22 H (1.40-6.50) K/uL Lymph # (Auto) 2.34 (1.2-3.4) K/uL [place] # (Auto) 0.86 H (0.11-0.59) K/uL Eos # (Auto) 0.14 (0-0.50) K/uL Baso # (Auto) 0.05 (0-0.2) K/uL Immature Gran # (Auto) 0.07 (0.01-0.20) K/uL PT 12.2 H (9.0-12.0) Seconds INR 1.1 (0.9-1.1) APTT 25.8 (21.0-31.0) Seconds PTT Ratio 0.9 Sodium 136 (136-145) mmol/L Potassium 4.6 (3.5-5.1) mmol/L Chloride 104 (98-107) mmol/L Carbon Dioxide 26 (21-32) mmol/L Anion Gap 6 (3-11) BUN 16 (6-23) mg/dl Creatinine 0.86 (0.6-1.4) mg/dl Est Cr Clr Drug Dosing 65.9 ml/min Est GFR ( Amer) 92.9 ml/min Est GFR (Non-Af Amer) 80.2 ml/min BUN/Creatinine Ratio 18.6 (10-20) Glucose 138 H (70-99(Fasting)) mg/dl Calcium 8.9 (8.6-10.3) mg/dl Total Bilirubin 0.5 (0.2-1.0) mg/dl AST 22 (13-39) U/L ALT 13 (7-52) U/L Alkaline Phosphatase 105 H (34-104) U/L Troponin I High Sens 21.0 H (0-20) pg/ml Total Protein 7.1 (6.0-8.3) gm/dl Albumin 4.1 (3.4-5.0) gm/dl Globulin 3.0 (2.5-4.0) gm/dl Albumin/Globulin Ratio 1.4 (0.9-2) TSH (0.300-4.500) uIu/ml 12/05/22 Range/Units 19:37 WBC (4.8-10.8) K/ul RBC (4.70-6.10) M/uL Hgb (14.0-18.0) g/dl Hct (42.0-52.0) % MCV (80.0-100.0) fL MCH (25.0-34.0) pg MCHC (32.0-36.0) g/dL RDW Std Deviation (36.4-46.3) fL RDW Coeff of Laurel (11.5-14.5) % Plt Count (130-400) K/uL MPV (9.4-12.4) fL Immature Gran % (Auto) % Neut % (Auto) % Lymph % (Auto) % [place] % (Auto) % Eos % (Auto) % Baso % (Auto) % Neut # (Auto) (1.40-6.50) K/uL Lymph # (Auto) (1.2-3.4) K/uL [place] # (Auto) (0.11-0.59) K/uL Eos # (Auto) (0-0.50) K/uL Baso # (Auto) (0-0.2) K/uL Immature Gran # (Auto) (0.01-0.20) K/uL PT (9.0-12.0) Seconds INR (0.9-1.1) APTT (21.0-31.0) Seconds PTT Ratio Sodium (136-145) mmol/L Potassium (3.5-5.1) mmol/L Chloride (98-107) mmol/L Carbon Dioxide (21-32) mmol/L Anion Gap (3-11) BUN (6-23) mg/dl Creatinine (0.6-1.4) mg/dl Est Cr Clr Drug Dosing ml/min Est GFR ( Amer) ml/min Est GFR (Non-Af Amer) ml/min BUN/Creatinine Ratio (10-20) Glucose (70-99(Fasting)) mg/dl Calcium (8.6-10.3) mg/dl Total Bilirubin (0.2-1.0) mg/dl AST (13-39) U/L ALT (7-52) U/L Alkaline Phosphatase (34-104) U/L Troponin I High Sens (0-20) pg/ml Total Protein (6.0-8.3) gm/dl Albumin (3.4-5.0) gm/dl Globulin (2.5-4.0) gm/dl Albumin/Globulin Ratio (0.9-2) TSH 0.890 (0.300-4.500) uIu/ml Imaging Data Radiologist's Impression: Cervical Spine CT 12/05/22 18:40 Exam(s): CT C SPINE EXAM: CT Cervical Spine Without Intravenous Contrast CLINICAL HISTORY: Reason for exam: Fall, neck pain. TECHNIQUE: Axial computed tomography images of the cervical spine without intravenous contrast. Automated exposure control was utilized for the study. A dose lowering technique was utilized adhering to the principles of ALARA. COMPARISON: None FINDINGS: Bones: Normal alignment. No acute fracture or bony lesion. Disc spaces: No subluxation. Degenerative changes of the spine. Soft tissues: Normal. Other: Small amount of fluid in the mastoid air cells. Atherosclerotic changes of the vasculature. Scarring and emphysematous changes at the lung apices. Pacer wires partially visualized on the left. IMPRESSION: No acute traumatic abnormality. Electronically signed by: Neva Thompson M.D. 12/05/22 20:[address] 12/05/22 18:40 Exam(s): CT HEAD Without Contrast EXAM: CT Head Without Intravenous Contrast CLINICAL HISTORY: Reason for exam: Syncope, fall. TECHNIQUE: Axial computed tomography images of the head/brain without intravenous contrast. Automated exposure control was utilized for the study. A dose lowering technique was utilized adhering to the principles of ALARA. COMPARISON: None FINDINGS: Brain: No acute infarct or hemorrhage identified. No extra-axial fluid collection. No mass effect or midline shift. Scattered areas of hypoattenuation in the supratentorial white matter likely represent chronic small vessel ischemic changes. Ventricles and sulci: Prominence of the ventricles and sulci is likely secondary to cerebral volume loss. Bones: Normal. No bony lesion or acute fracture. Subcutaneous tissues: Normal. Sinuses: Mild mucosal thickening in the right ethmoid air cells. Mastoid air cells: Small amount of fluid in the mastoid air cells. Orbits: Grossly unremarkable. Other: Atherosclerotic calcifications in the intracranial vasculature. IMPRESSION: 1. No acute intracranial abnormality. 2. Chronic small vessel ischemic changes and cerebral volume loss. Electronically signed by: Neva Thompson M.D. 12/05/22 20:36 PM Discharge Plan Visit Data Chief Complaint: Fall Stated Complaint: FALL, LE, BLEEDING ED Provider: Terrell Quigley Discharge Problem: Syncope and collapse, CHI (closed head injury), Multiple abrasions, Elevated t roponin, Skin tear of left forearm without complication Discharge Instructions Interventions: ED Discharge Assessment Last Done: 12/06/22 00:09
--- NOTE | 2022-12-06 | History & Physical Report ---
Date of Service December 06, 2022 Assessment & Plan (1) Syncope and collapse: Plan: 82 M with PMH significant for CAD with cardiomyopathy and pacemaker implantation, COPD, DM 2, who presents to the emergency room for evaluation/management of a fall secondary to an acute syncopal episode. Syncope -Etiology unclear at this time. No evidence of prodrome. EKG was negative, as was interrogation of pacemaker. No electrolyte derangements or evidence of dehydration. On elevated white count, no inflammatory/infectious markers pointing to infection. -Differential includes orthostatic hypotension, vasovagal syncope, ventricular arrhythmia, or aortic stenosis, though the latter is less likely, given acute and singular episodic presentation. -Patient follows with Dr. Gandhi of [facility] physician group. Last office visit 10/03/2021 shows interrogation of pacer was negative for arrhythmias or shocks delivered. * Admit to observation in MedSurg telemetry. * TTE echo pending. * Consider cardiology consult for evaluation/med recommendations as patient is known to the practice. Would also consider MRI vs EEG vs neurology consult if work-up remains nondiagnostic. Coronary artery disease -S/p heart surgery, pacemaker implantation. -Managed on losartan, high intensity atorvastatin, carvedilol, and aspirin. -Aspirin held on admission due to concern for intracranial vascular process. * TTE pending as above * Continue home medications: Carvedilol 25 mg twice daily (with meals), atorvastatin 80 mg, losartan 25 mg daily, aspirin 81 mg daily. COPD -Chronic. Managed on daily Breztri Aerosphere inhaler, as needed Ventolin inhaler. Patient is a current everyday smoker, reportedly half pack per day since age 17. -No evidence of COPD exacerbation, or acute respiratory process on admission or in ER evaluation. Patient reports adherence to daily maintenance inhaler therapy. * Umeclidinium/vilanterol inhaler 1 puff daily * As needed albuterol inhaler Diabetes mellitus, type II -Chronic. Managed on glimepiride at home. Appears to be well controlled at last check on 08/08/2022 (6.7). -BSG 138 on admission. * Home glimepiride held on admission * SSI per protocol (goal range 100-140, CF-40 mg/dL/unit, CR = 25 g/unit) * A.m. hemoglobin A1c recheck pending Depression -Chronic. Managed on paroxetine 20 mg. * Continue home paroxetine History of Inman's esophagus, gastritis -Chronic. Managed with pantoprazole 40 mg daily * Continue home pantoprazole Code: Full code Dispo: Med-Surg telemetryobservation FEN/GI: Heart healthy DVT Prophylaxis: Held due to fall, concern for bleeding PT/OT: Yes Consults: Case Management: No (2) CAD (coronary artery disease): (3) Chronic obstructive pulmonary disease: (4) Depression: (5) Barretts esophagus: History of Present Illness Primary Care Provider: Anna Devi MD Luis is a pleasant 82-year-old man with a past medical history significant for coronary artery disease with cardiomyopathy (s/p open heart surgery, pacemaker implant), diabetes mellitus, aortic aneurysm, and aortic valve sclerosis, who presents to the emergency room today following a fall brought on by an apparent acute syncopal episode. Patient recalls being in his usual state of health when he stood from a seated position and immediately fell to the ground. He remembers standing up, then waking up on the ground. His , who was in the room next-door heard him fall and came in to check on him a few seconds later. He regained consciousness while on the floor, and remembers his kneeling over him., As she was in the next room, he estimates the entire episode lasted less than 30 seconds. He sustained some bruises on his nasal bridge, forearms, and face. However, he denies headache, vision changes, shortness of breath, chest pain, nausea, abdominal pain, pedal edema, or any symptoms of peripheral neuropathy. Though he initially was not going to go to the emergency room, his daughter noticed the bruises on his arms and face and insisted that he be evaluated in the emergency room. He had a similar encounter about a year ago, for which she did not seek medical attention. He had no lingering symptoms, and remained asymptomatic until today. In the ED, vitals were within normal limits. Other than a mild leukocytosis (13.68), CBC revealed no abnormalities. CMP was also normal, save for slight elevation in alkaline phosphatase (105). Patient's troponin was slightly elevated (21.0). The patient also had his pacemaker interrogated, which revealed a nonsustained episode of V. tach 2 weeks ago. However no abnormal electrical activity was noted today. Head CT and C-spine CT were negative for acute intracranial or hemorrhagic process as well. Hospitalist service was then consulted for admission, given elevated troponin and syncope work-up. Allergies Allergy/AdvReac Type Severity Reaction Status Date / Time No Known Drug Allergies Allergy Unknown Verified 12/05/22 21:36 Home Medications Medication Instructions Recorded Confirmed Type multivitamin (Multiple Vitamins 1 tab PO DAILY 12/05/18 12/05/22 History tablet) cholecalciferol (vitamin D3) 25 1,000 units PO DAILY #90 tabs 12/13/18 12/05/22 History mcg (1,000 unit) tablet guaifenesin 600 mg tablet, 600 mg PO BID PRN congestion #120 11/09/21 12/05/22 Rx extended release 12 hr (Mucinex) tabs albuterol sulfate 90 mcg/actuation 2 inh inhalation Q6H PRN shortness 06/05/22 12/05/22 Rx aerosol inhaler (Ventolin HFA) of breath or wheezing #6.7 grams budesonide 160 mcg-glycopyr 9 2 inh inhalation BID #10.7 grams 06/05/22 12/05/22 Rx mcg-formot 4.8 mcg/actuation HFA inhaler (Breztri Aerosphere) rabeprazole 20 mg tablet,delayed 20 mg PO DAILY #90 tabs 06/22/22 12/05/22 Rx release mecobalamin (vitamin B12) 1,000 1,000 mcg PO DAILY 08/14/22 12/05/22 History mcg lozenges glimepiride 2 mg tablet 2 mg PO QAM #90 tabs 10/04/22 12/05/22 Rx losartan 25 mg tablet 25 mg PO DAILY #90 tabs 10/17/22 12/05/22 Rx atorvastatin 80 mg tablet 80 mg PO HS #90 tabs 11/03/22 12/05/22 Rx aspirin 81 mg tablet,delayed 81 mg PO DAILY 12/05/22 12/05/22 History release carvedilol 25 mg tablet 25 mg PO BID 12/05/22 12/05/22 History paroxetine HCl 20 mg tablet 20 mg PO DAILY 12/05/22 12/05/22 History Past Med/Surg History Medical History Aortic aneurysm Aortic valve sclerosis Barretts esophagus CAD (coronary artery disease) Cardiomyopathy Chronic cough Diabetes mellitus Inguinal hernia Raynaud's disease Sinus bradycardia Solitary pulmonary nodule Surgical History H/O heart surgery Family History Daughter Crohn's colitis Unknown Heart disease Other Myocardial infarction Denies family history of Ovarian cancer Prostate cancer Breast cancer Colorectal cancer Social History (Updated 08/08/22 @ 10:17 by Flori Fulton LPN) Smoking Status: Current some day smoker Tobacco Type: Cigarettes Age Started Using Tobacco: 17; Cigarettes Per Day: 10; Second Hand Exposure: Yes; Do You Dip or Chew Tobacco: No; Hx Alcohol Use: No Hx Substance Use: No Preferred Language: Brazilian Communication Ability: Effective Hearing Ability: Use of Hearing Aid Relationship Counselor Required: No Beliefs That Will Affect Care: None marital status: Current Living Situation: Spouse current occupational status: retired How many Children do You have: 3 Feels Safe at Home: Yes Childhood Exposure to Second-Hand Smoke: Yes Diet: regular caffeine: Yes Dental Care, Regularly: Yes Physical Activity Frequency: 3-4 Times per Week Seatbelt Use: always Sunscreen Use: No Assistive Devices: Hearing Aid - Bilateral Review of Systems Review of Systems: All systems reviewed & are unremarkable except as noted in HPI & below Physical Exam Physical Exam: General: Pleasant elderly man in no acute distress HEENT: PERRLA. Normal conjunctiva, anicteric sclera. Oropharynx normal. Respiratory: Normal respiratory effort. Slightly diminished breath sounds diffusely on the left. Mild inspiratory stridor (rales?) heard on auscultation. Cardiovascular: RRR without murmurs, gallops, or rubs. No pedal edema. Neuro: Alert and oriented x3. CN II-XII intact. 5/5 strength with flexion and extension at the hip, knee, and ankle joints bilaterally. No sensory deficits elicited. Results & Data Results & Data Vital Signs (Past 12 Hours) Vital Signs Temp Pulse Resp BP Pulse Ox O2 Del Method 12/05/22 23:30 60 17 133/67 93 Room Air 12/05/22 22:30 60 18 138/69 94 Room Air 12/05/22 22:00 60 19 140/67 94 Room Air 12/05/22 21:15 63 12/05/22 21:00 61 18 96 Room Air 12/05/22 18:36 36.9 C 78 20 118/61 94 Room Air Supervising Physician Co-Signing Physician Notes Attending addendum: I have physically seen this patient, have supervised the medical residents activities, and agree with the H&P unless as otherwise noted. Assessment and Plan: Syncope and collapse- The patient will be admitted to telemetry for serial cardiac enzymes, serial EKG's, cardiac rhythm monitoring and a 2-D echocardiogram with Dopplers. Interrogation of pacemaker negative Differential including but not limited to: Orthostatic hypotension, vasovagal syncope, arrhythmia, hypoglycemia, neuropathy/autonomic dysfunction, aortic stenosis, others Consult Dr. Gandhi, cardiology whom the patient follows with Symptoms occurred when the patient went from sitting to standing, which argues more for an orthostatic cause CAD/presence of pacemaker- Continue carvedilol, losartan and aspirin Cardiology work-up as above Troponin 21.0, follow serially as noted COPD/tobacco use disorder- Continue outpatient inhaler regimen Diabetes mellitus- Hold glimepiride, as may be contributing to orthostatic symptoms Check hemoglobin A1c Depression- Continue paroxetine for now, but it may be associated with orthostatic hypotension Remaining orders and notations as noted Resident Activity Tracking Resident Involvement: Resident Care Provided Care Provided: Adult Hospital Medicine (2) CAD (coronary artery disease) Associated angina: without angina Coronary Disease-Associated Artery/Lesion type: bypass graft [place] vs. transplanted heart: [place] heart Qualified Code(s): I25.810 - Atherosclerosis of coronary artery bypass graft(s) without angina pectoris
[2022-12-06] MEDS ORDERED: ACETAMINOPHEN 325 MG TAB PO PRN (00:09)
[2022-12-06] MEDS ORDERED: ALBUTEROL HFA 8 GM INHALER INH PRN (00:09)
[2022-12-06] MEDS ORDERED: GLUCAGON FOR INJ 1 MG VIAL SQ PRN (00:57)
[2022-12-06] MEDS ORDERED: GLUCOSE 10 TAB/TUBE PO PRN (00:57)
[2022-12-06] MEDS ORDERED: DEXTROSE 50% 50 ML SYRINGE IV PRN (00:57)
[2022-12-06] MEDS ORDERED: CARBOHYDRATES FOR HYPOGLYCEMIA PO PRN (00:57)
[2022-12-06] MEDS ORDERED: GLUCOSE 40% GEL 15 GM TUBE PO PRN (00:57)
[2022-12-06 05:17] LABS: Hematocrit (blood only) 36.6 % (42.0-52.0); Hemoglobin 12.3 g/dl (14.0-18.0); Mean Corpuscular Hemoglobin 32.1 pg (25.0-34.0); Mean Corpuscular Hgb Conc 33.6 g/dL (32.0-36.0); Mean Corpuscular Volume 95.6 fL (80.0-100.0); Mean Platelet Volume 9.6 fL (9.4-12.4); Platelet Count 151 K/uL (130-400); RDW Coefficient of Variation 12.6 % (11.5-14.5); RDW Standard Deviation 43.9 fL (36.4-46.3); Red Blood Count 3.83 M/uL (4.70-6.10); White Blood Count 9.49 K/ul (4.8-10.8)
[2022-12-06 05:35] LABS: Albumin Globulin Ratio 1.4 (0.9-2); Albumin Level 3.6 gm/dl (3.4-5.0); Bilirubin,Total 0.4 mg/dl (0.2-1.0); Calcium 8.4 mg/dl (8.6-10.3); Creatinine Clr Calc Pharmacy 75.6 ml/min; Est GFR (African American) 98.3 ml/min; Est GFR (Non-African American) 84.8 ml/min; Globulin 2.5 gm/dl (2.5-4.0); Magnesium 2.3 mg/dl (1.7-2.4); Potassium 4.1 mmol/L (3.5-5.1); Total Protein 6.1 gm/dl (6.0-8.3)
[2022-12-06 05:42] LABS: Troponin I High Sensitivity 22.8 pg/ml (0-20)
[2022-12-06 07:06] LABS: Estimated Average Glucose 146 mg/dl; Hemoglobin A1C 6.7 % (4.5-5.6)
--- NOTE | 2022-12-06 07:37 | Hospitalist Progress Note ---
Date of Service December 06, 2022 Assessment & Plan (1) Syncope and collapse: Plan: 82 M with PMH significant for CAD with cardiomyopathy and pacemaker implantation, COPD, DM 2, who presents to the emergency room for evaluation/management of a fall secondary to an acute syncopal episode. Syncope -Etiology unclear at this time. No evidence of prodrome. EKG was negative, as was interrogation of pacemaker. No electrolyte derangements or evidence of dehydration. On elevated white count, no inflammatory/infectious markers pointing to infection. -Differential includes orthostatic hypotension, vasovagal syncope, ventricular arrhythmia, or aortic stenosis, though the latter is less likely, given acute and singular episodic presentation. -Patient follows with Dr. Gandhi of [facility] physician group. Last office visit 10/03/2021 shows interrogation of pacer was negative for arrhythmias or shocks delivered. * Admit to observation in MedSurg telemetry. * TTE echo pending. * Consider cardiology consult for evaluation/med recommendations as patient is known to the practice. Would also consider MRI vs EEG vs neurology consult if work-up remains nondiagnostic. Coronary artery disease -S/p heart surgery, pacemaker implantation. -Managed on losartan, high intensity atorvastatin, carvedilol, and aspirin. -Aspirin held on admission due to concern for intracranial vascular process. * TTE pending as above * Continue home medications: Carvedilol 25 mg twice daily (with meals), atorvastatin 80 mg, losartan 25 mg daily, aspirin 81 mg daily. COPD -Chronic. Managed on daily Breztri Aerosphere inhaler, as needed Ventolin inhaler. Patient is a current everyday smoker, reportedly half pack per day since age 17. -No evidence of COPD exacerbation, or acute respiratory process on admission or in ER evaluation. Patient reports adherence to daily maintenance inhaler therapy. * Umeclidinium/vilanterol inhaler 1 puff daily * As needed albuterol inhaler Diabetes mellitus, type II -Chronic. Managed on glimepiride at home. Appears to be well controlled at last check on 08/08/2022 (6.7). -BSG 138 on admission. * Home glimepiride held on admission * SSI per protocol (goal range 100-140, CF-40 mg/dL/unit, CR = 25 g/unit) * A.m. hemoglobin A1c recheck pending Depression -Chronic. Managed on paroxetine 20 mg. * Continue home paroxetine History of Inman's esophagus, gastritis -Chronic. Managed with pantoprazole 40 mg daily * Continue home pantoprazole Code: Full code Dispo: Med-Surg telemetryobservation FEN/GI: Heart healthy DVT Prophylaxis: Held due to fall, concern for bleeding PT/OT: Yes Consults: Case Management: No (2) CAD (coronary artery disease): (3) Chronic obstructive pulmonary disease: (4) Depression: (5) Barretts esophagus: Admission and Anticipated Discharge Date Admission Date: December 05, 2022 Results & Data Results & Data Vital Signs (Past 12 Hours) Vital Signs Temp Pulse Pulse Resp BP BP Pulse Ox 12/06/22 05:30 60 18 154/70 H 93 12/06/22 01:48 36.8 C 60 18 125/58 L 93 12/06/22 01:32 36.8 C 63 20 12/06/22 00:32 61 12/05/22 23:30 60 17 133/67 93 12/05/22 22:30 60 18 138/69 94 12/05/22 22:00 60 19 140/67 94 12/05/22 21:15 63 12/05/22 21:00 61 18 96 O2 Del Method 12/06/22 05:30 Room Air 12/06/22 01:48 Room Air 12/06/22 01:32 12/06/22 00:32 12/05/22 23:30 Room Air 12/05/22 22:30 Room Air 12/05/22 22:00 Room Air 12/05/22 21:15 12/05/22 21:00 Room Air (2) CAD (coronary artery disease) Coronary Disease-Associated Artery/Lesion type: bypass graft [place] vs. transplanted heart: [place] heart Associated angina: without angina Qualified Code(s): I25.810 - Atherosclerosis of coronary artery bypass graft(s) without angina pectoris
--- NOTE | 2022-12-06 07:41 | XRay Report ---
XR chest 1V portable HISTORY: Syncope COMPARISON: Chest CT 11/03/2020. FINDINGS: No pneumothorax. No pleural effusions. No focal lung consolidations to suggest a pneumonia. No evidence for pulmonary edema. Emphysema again noted. There are poststernotomy changes and left-si ded asymmetric/defibrillator. Stable scarlike density again noted within the right lung apex. There a re old, healed left-sided rib fractures. IMPRESSION: Emphysema. Otherwise, no acute process within the chest. ACT 112: Negative or not required by law. Electronically signed by: Brady Qureshi M.D. 12/06/2022 7:40 AM
[2022-12-06] MEDS ORDERED: carvediloL 25 MG TAB PO SCH (08:00)
[2022-12-06] MEDS ORDERED: CYANOCOBALAMIN (B-12) 500 MCG TABLET PO SCH (09:00)
[2022-12-06] MEDS ORDERED: UMECLIDINIUM/VILANTEROL 62.5/25MCG 7 PUFFS/INHALER INH SCH (09:00)
[2022-12-06] MEDS ORDERED: GLIMEPIRIDE 2 MG TAB PO SCH (09:00)
[2022-12-06] MEDS ORDERED: PANTOprazole 40 MG TAB PO SCH (09:00)
[2022-12-06] MEDS ORDERED: NICOTINE 7 MG/24 HR TDSY TD SCH (09:00)
[2022-12-06] MEDS ORDERED: FLUTICASONE FUROATE 200MCG 14 PUFFS/INHALER INH SCH (09:00)
[2022-12-06] MEDS ORDERED: CHOLECALCIFEROL 1,000 UNITS 25 MCG TAB PO SCH (09:00)
[2022-12-06] MEDS ORDERED: NON-FORMULARY MEDICATION (Budesonide-Glycopyr-Formoterol [Breztri Aerosphere] 160-9-4.8 mc INH SCH (09:00)
[2022-12-06] MEDS ORDERED: PARoxetine HCL 20 MG TAB PO SCH (09:00)
[2022-12-06] MEDS ORDERED: LOSARTAN POTASSIUM 25 MG TAB PO SCH (09:00)
[2022-12-06] MEDS: INSULIN ASPART PER UNIT CHARGE SC SCH ×2 (09:33→13:11)
--- NOTE | 2022-12-06 10:57 | Discharge Summary ---
Date of Service December 06, 2022 Admission HPI Per Admitting Provider Luis is a pleasant 82-year-old man with a past medical history significant for coronary artery disease with cardiomyopathy (s/p open heart surgery, pacemaker implant), diabetes mellitus, aortic aneurysm, and aortic valve sclerosis, who presents to the emergency room today following a fall brought on by an apparent acute syncopal episode. Patient recalls being in his usual state of health when he stood from a seated position and immediately fell to the ground. He remembers standing up, then waking up on the ground. His , who was in the room next-door heard him fall and came in to check on him a few seconds later. He regained consciousness while on the floor, and remembers his kneeling over him., As she was in the next room, he estimates the entire episode lasted less than 30 seconds. He sustained some bruises on his nasal bridge, forearms, and face. However, he denies headache, vision changes, shortness of breath, chest pain, nausea, abdominal pain, pedal edema, or any symptoms of peripheral neuropathy. Though he initially was not going to go to the emergency room, his daughter noticed the bruises on his arms and face and insisted that he be evaluated in the emergency room. He had a similar encounter about a year ago, for which she did not seek medical attention. He had no lingering symptoms, and remained asymptomatic until today. In the ED, vitals were within normal limits. Other than a mild leukocytosis (13.68), CBC revealed no abnormalities. CMP was also normal, save for slight elevation in alkaline phosphatase (105). Patient's troponin was slightly elevated (21.0). The patient also had his pacemaker interrogated, which revealed a nonsustained episode of V. tach 2 weeks ago. However no abnormal electrical activity was noted today. Head CT and C-spine CT were negative for acute intracranial or hemorrhagic process as well. Hospitalist service was then consulted for admission, given elevated troponin and syncope work-up. Admission Exam Per Admitting Provider General: Pleasant elderly man in no acute distress HEENT: PERRLA. Normal conjunctiva, anicteric sclera. Oropharynx normal. Respiratory: Normal respiratory effort. Slightly diminished breath sounds diffusely on the left. Mild inspiratory stridor (rales?) heard on auscultation. Cardiovascular: RRR without murmurs, gallops, or rubs. No pedal edema. Neuro: Alert and oriented x3. CN II-XII intact. 5/5 strength with flexion and extension at the hip, knee, and ankle joints bilaterally. No sensory deficits elicited. Principal Diagnosis Orthostatic hypotensive Discharge Exam Constitutional: well-appearing, no acute distress HEENT: NCAT, no conjunctival injection CV: regular rhythm, no murmur appreciated, extremities well-perfused, no LE edema Resp: CTABL, no wheezes/rales/rhonchi appreciated, no increased work of breathing GI: soft, nondistended, nontender, BS normoactive MSK: no gross deformities appreciated Skin: warm, dry, no rash appreciated Neuro: alert, oriented, no focal neurologic deficit appreciated Discharge Data Allergies Allergy/AdvReac Type Severity Reaction Status Date / Time No Known Drug Allergies Allergy Unknown Verified 12/05/22 21:36 Consultations 12/05/22 21:47 ED Decision to Admit Stat Ordered Studies 12/05/22 18:40 CT cervical spine wo con Stat CT head/brain wo con Stat Hospital Course (1) Syncope and collapse: (2) CAD (coronary artery disease): (3) Chronic obstructive pulmonary disease: (4) Depression: (5) Barretts esophagus: (6) Orthostatic hypotension: Plan 82 M with PMH significant for CAD with cardiomyopathy and pacemaker implantation, COPD, DM 2, who presents to the emergency room for evaluation/management of a fall secondary to an acute syncopal episode. Syncope Orthostatic hypotension EKG negative, no electrolyte abnormalities, slight leukocytosis which resolved. Chest x-ray showed emphysema, no acute processes. Cervical spine CT negative, head CT without any acute abnormalities. Orthostatics positive. Patient states that he does not drink much water. Encouraged p.o. hydration at time of discharge. 60-70 ounces fluids daily. Patient had echo done prior to DC. However, syncopal episode most likely st emming from orthostatic hypotension rather than a ischemic cardiomyopathy. Patient should follow-up with PCP regarding echo results. If concerning echo results, will reach out to patient to have him return to the hospital. High sensitive troponin of 21 with a repeat of 22 approximately 9 hours later. Coronary artery disease -S/p heart surgery, pacemaker implantation. -Managed on losartan, high intensity atorvastatin, carvedilol, and aspirin. -Aspirin held on admission due to concern for intracranial vascular process. Can restart at time of discharge. COPD -Chronic. Managed on daily Breztri Aerosphere inhaler, as needed Ventolin inhaler. Patient is a current everyday smoker, reportedly half pack per day s cristian age 17. -No evidence of COPD exacerbation, or acute respiratory process on admission or in ER evaluation. Patient reports adherence to daily maintenance inhaler therapy. Diabetes mellitus, type II -Chronic. Managed on glimepiride at home. Appears to be well controlled at last check on 08/08/2022 (6.7). -BSG 138 on admission. -Hemoglobin A1c of 6.7 on 12/06. Depression -Chronic. Managed on paroxetine 20 mg. History of Inman's esophagus, gastritis -Chronic. Managed with pantoprazole 40 mg daily Total Time Total Time Spent Total Time Spent (In Minutes): <30 Discharge Plan Discharge Items Patient Disposition: Home - Self-Care Reason For Visit: FALL Discharge Diagnosis: Orthostatic hypotension Activity: Resume your previous activity Non-emergency contact: Primary Care Provider Call non-emergency contact if: you have any medication questions, your pain is unusual for you and your temperature is above 101.5 Follow-up/Referrals: Anna Devi MD [Primary Care Provider] - Diet: Regular Fluids: 2000ml (8 cups) Addtl Attending Provider Instructions: You were admitted to the hospital for orthostatic hypotension. You were treated with fluids. A discharge summary will be sent to your primary care physician to ensure continuity of care. Please bring this discharge summary with you to your next office appointment so that your provider can review it at that time. Follow-up appointments: * Make a follow-up appointment with your PCP within the next week. It is very important that you follow up with them shortly after discharge from the hospital. * Keep all your follow-up appointments as already scheduled. If you cannot make an appointment, notify your provider. Medications: Your medication list has been reviewed and reconciled upon discharge to ensure accuracy and continuity of care. An updated list of all your medications is included with your hospital discharge paperwork. Please review this list closely, and make note of any changes. * No new medication was added during your visit. * If you have any issues filling these prescriptions, please call [phone] and ask to leave a message for Dr. Hankins. * Take your medications as instructed; do not skip a dose of your medicines. Make sure all of your doctors know every medicine you are taking (including obtd-euq-[id number] medicines, vitamins, and supplements). Call your primary care provider before taking any new medicines (including over- the-counter medicines, vitamins, and supplements), because some of these may interact with your current medications, or may make your symptoms worse. Tell your primary care provider if you cannot afford your medications. CONTACT YOUR PRIMARY CARE PROVIDER if you experience any of the following: * Worsening of symptoms * Fever, chills, or fatigue * Difficulty following your treatment plan, or difficulty taking medications CALL 911 OR GO TO THE EMERGENCY DEPARTMENT if you experience any of the following: * Sudden, severe abdominal pain or nausea/vomiting * Severe chest pain, or chest pain that radiates (moves) to your jaw or arm * Sudden, severe shortness of breath or difficulty breathing Thank you for allowing us to participate in your care. Pending Studies at Discharge: Yes Studies:: ECHO Stand-Alone Forms: My [facility] addwish, Smoking Cessation Medications and DC Order Prescriptions: Continued rabeprazole 20 mg tablet,delayed release (DR/EC) 20 mg PO DAILY Qty: 90 3RF glimepiride 2 mg tablet 2 mg PO QAM Qty: 90 1RF losartan 25 mg tablet 25 mg PO DAILY Qty: 90 1RF atorvastatin 80 mg tablet 80 mg PO HS Qty: 90 3RF cholecalciferol (vitamin D3) 1,000 unit (25 mcg) tablet 1,000 units PO DAILY Qty: 90 multivitamin [Multiple Vitamins] tablet 1 tab PO DAILY guaifenesin [Mucinex] 600 mg tablet extended release 12hr 600 mg PO BID PRN (Reason: congestion) Qty: 120 1RF Rx Instructions: Take 1 tab p.o. twice a day for 7 days and then as needed albuterol sulfate [Ventolin HFA] 90 mcg/actuation HFA aerosol inhaler 2 inh INH Q6H PRN (Reason: shortness of breath or wheezing) Qty: 6.7 2RF Breztri Aerosphere 160-9-4.8 mcg/actuation HFA aerosol inhaler 2 inh inhalation BID Qty: 10.7 12RF mecobalamin (vitamin B12) 1,000 mcg lozenge 1,000 mcg PO DAILY Rx Instructions: allow to dissolve in mouth OR may chew lightly before swallowing aspirin 81 mg Tablet,Delayed Release (Dr/Ec) 81 mg PO DAILY paroxetine HCl 20 mg tablet 20 mg PO DAILY carvedilol 25 mg tablet 25 mg PO BID Discharge Orders: Discharge Order (Routine); Ordered 12/06/22 Ordered By: Lee Cardoso/Other Patient Handouts: Managing Type 2 Diabetes, Orthostatic Hypotension Admission Data Admit Date/Time: 12/05/22 23:26 Attending Provider: Bruce Velasquez Admit Provider: Eva Andrew Primary Care Provider: Anna Devi Other Providers: Blaise Quiñonez Other Interventions: Discharge Summary Assessment (RN) Last Done: 12/06/22 14:42 Supervising Physician Co-Signing Physician Notes I personally examined the patient and verified all robles points of history and exam, discussed case, and agree with decision making with Dr Hankins feeling better and would very much like to go home vitals noted nad heent nc at mmm breathing unlabored no accessory muscles good effort skin no rashes no pallor or icterus syncope - orthostatic. doesn't drink enough per his own recall - encouraged more pO fluid intake to protect against dehydration. (60-70oz fluids daily). safe for home ischemic cardiomyopathy -echo today done prior to dc, but pt was feeling better and after discussion he wanted to get home prior to echo results being read. to be clear i do not believe that any of his worsening ischemic cardiomyopathy is new (given that his troponin went from 21 - 22.8 over ~9hrs) and i do not believe the worsening ischemia had any significant bearing on his syncope - rather this may be in baseline range, or slow chronic worsening - either way echo results reported after pt went home, no need to bring him inpatient to review - asked that navigator set him up with cardiology for review and ongoing med management otherwise as above Resident Activity Tracking Resident Involvement: Resident Care Provided Care Provided: Adult Hospital Medicine
[2022-12-06] MEDS ORDERED: LACTATED RINGER'S 500 ML IV ONE (12:04)
--- NOTE | 2022-12-06 13:23 | XCELERA ---
[id number] [id number]
--- NOTE | 2022-12-06 13:36 | Billing Data ---
Date of Service December 06, 2022 Coding Level of Care Code 44097 IN/OBS DISCH 30 MIN/LESS
--- NOTE | 2022-12-06 15:38 | Electrocardiogram Report ---
Test Reason : Blood Pressure : / mmHG Vent. Rate : 090 BPM Atrial Rate : 090 BPM P-R Int : 250 ms QRS Dur : 126 ms QT Int : 406 ms P-R-T Axes : 085 070 088 degrees QTc Int : 496 ms Atrial-paced rhythm with prolonged AV conduction Right bundle branch block Abnormal ECG When compared with ECG of 08-FEB-2017 13:53, Vent. rate has increased BY 30 BPM Confirmed by Mauri Medina ([id number]) on 12/06/2022 3:38:13 PM Referred By: REFERRED SELF Confirmed By:Mauri Medina
[2022-12-06] MEDS ORDERED: ATORVASTATIN 40 MG TAB PO SCH (21:00)
--- NOTE | 2022-12-07 02:34 | Billing Data ---
Date of Service December 07, 2022 Coding Level of Care Code 01479 INT INP/OBS CARE
== END 2022-12-06 14:42 | disposition home or self-care (01) ==
LOC: EDINP 18:30 → ED 18:30 → SUATTDRO 23:26 → EDINP 12-06 00:09

== ENCOUNTER 2023-05-25 11:40 | Inpatient (IN) ==
--- NOTE | 2023-05-25 12:10 | Emergency Department Note ---
History of Present Illness General Chief complaint: Dizziness Stated complaint: DIZZINESS Time Seen by Provider: 05/25/23 11:52 Source: patient, RN notes reviewed and old records reviewed (I have reviewed outpatient notes from the [place] clinic from today) Mode of arrival: EMS Limitations: no limitations History of Present Illness This patient is a 83-year-old male who was sent over from [facility] after having low blood pressure in the 80s he said he felt slightly dizzy more so when he stood. No spinning he says he feels fine right now when I see him his blood pressures in the 120s he denies any recent illness. He denies fever. He has had a chronic cough for several weeks to months. Denies nausea vomiting or diarrhea. No blood or melena stool no abdominal pain chest pain or shortness of breath no heart racing or skipping he does not have a defibrillator/pacer. No defibrillator firing. No urinary symptoms no syncope or near syncope. No numbness or weakness no change in vision. He feels asymptomatic at present. According to the paramedics they did tell the nurse that there may have been some confusion with medications about stopping 1 and starting another. Home Medications Medication Instructions Recorded Confirmed Type multivitamin (Multiple Vitamins 1 tab PO DAILY 12/05/18 05/25/23 History tablet) cholecalciferol (vitamin D3) 25 1,000 units PO DAILY #90 tabs 12/13/18 05/25/23 History mcg (1,000 unit) tablet guaifenesin 600 mg tablet, 600 mg PO BID PRN congestion #120 11/09/21 05/25/23 Rx extended release 12 hr (Mucinex) tabs albuterol sulfate 90 mcg/actuation 2 inh inhalation Q6H PRN shortness 06/05/22 05/25/23 Rx aerosol inhaler (Ventolin HFA) of breath or wheezing #6.7 grams budesonide 160 mcg-glycopyr 9 2 inh inhalation BID #10.7 grams 06/05/22 05/25/23 Rx mcg-formot 4.8 mcg/actuation HFA inhaler (Breztri Aerosphere) rabeprazole 20 mg tablet,delayed 20 mg PO DAILY #90 tabs 06/22/22 05/25/23 Rx release mecobalamin (vitamin B12) 1,000 1,000 mcg PO DAILY 08/14/22 05/25/23 History mcg lozenges atorvastatin 80 mg tablet 80 mg PO HS #90 tabs 11/03/22 05/25/23 Rx aspirin 81 mg tablet,delayed 81 mg PO DAILY 12/05/22 05/25/23 History release carvedilol 25 mg tablet 25 mg PO BID 12/05/22 05/25/23 History empagliflozin 10 mg tablet 10 mg PO DAILY #90 tabs 12/20/22 05/25/23 Rx (Jardiance) sacubitril 24 mg-valsartan 26 mg 1 tab PO BID #60 tabs 02/08/23 05/25/23 Rx tablet (Entresto) glimepiride 2 mg tablet 2 mg PO QAM #90 tabs 03/29/23 05/25/23 Rx paroxetine HCl 20 mg tablet 20 mg PO DAILY #90 tabs 05/10/23 05/25/23 Rx Allergies Allergy/AdvReac Type Severity Reaction Status Date / Time No Known Drug Allergies Allergy Unknown Verified 04/20/23 10:02 Past Med/Surg History Medical History Inguinal hernia Sinus bradycardia Raynaud's disease Solitary pulmonary nodule Diabetes mellitus Chronic cough CAD (coronary artery disease) Barretts esophagus Aortic valve sclerosis Aortic aneurysm Cardiomyopathy Surgical History H/O heart surgery Family History Daughter Crohn's colitis Unknown Heart disease Other Myocardial infarction Denies family history of Ovarian cancer Prostate cancer Breast cancer Colorectal cancer Social History Smoking Status: Current every day smoker Tobacco Type: Cigarettes Age Started Using Tobacco: 17; Cigarettes Per Day: 6-8; Second Hand Exposure: Yes; Do You Dip or Chew Tobacco: No; Hx Alcohol Use: No Hx Substance Use: No Preferred Language: Gabonese Communication Ability: Effective Hearing Ability: Use of Hearing Aid Digital Business Analyst Required: No Beliefs That Will Affect Care: None marital status: Current Living Situation: Spouse current occupational status: retired How many Children do You have: 3 Feels Safe at Home: Yes Safety Concerns: Feels Safe At This Time Childhood Exposure to Second-Hand Smoke: Yes Diet: regular caffeine: Yes Dental Care, Regularly: Yes Physical Activity Frequency: 3-4 Times per Week Seatbelt Use: always Sunscreen Use: No Assistive Devices: Hearing Aid - Bilateral Review of Systems A total of 10 systems reviewed and were otherwise negative Physical Exam Vital Signs Vital Signs - 24 hr 05/25/23 11:44 05/25/23 11:48 05/25/23 12:00 Temperature 36.5 C Temperature Source Oral Pulse Rate 91 H 78 72 Pulse Rate [Apical] Pulse Rate from SpO2 Sensor Pulse Rhythm Regular Pulse Rhythm [Apical] Pulse Strength Normal Pulse Strength [Apical] Respiratory Rate 11 L 16 Respiratory Effort / Characteristics Non-Labored Spontaneous Respiratory Depth Normal Respiratory Pattern Regular Blood Pressure 128/74 128/74 Blood Pressure [Right Arm] Blood Pressure Mean 92 92 Blood Pressure Mean [Right Arm] Blood Pressure Position Semi-fowlers Blood Pressure Position [Right Arm] Pulse Oximetry 97 Oxygen Delivery Method Room Air Sepsis Recent Fever Within 48 Hours No Sepsis New/Unexplained Change in Mental Status N/A Sepsis Action Taken by Nursing No Action Required 05/25/23 12:00 05/25/23 12:30 05/25/23 12:49 Temperature Temperature Source Pulse Rate 72 61 Pulse Rate [Apical] 60 Pulse Rate from SpO2 Sensor Pulse Rhythm Pulse Rhythm [Apical] Regular Pulse Strength Pulse Strength [Apical] Normal Respiratory Rate 16 20 18 Respiratory Effort / Characteristics Non-Labored Spontaneous Respiratory Depth Normal Respiratory Pattern Regular Blood Pressure Blood Pressure [Right Arm] 115/64 Blood Pressure Mean Blood Pressure Mean [Right Arm] 81 Blood Pressure Position Blood Pressure Position [Right Arm] Sitting Pulse Oximetry 96 Oxygen Delivery Method Room Air Sepsis Recent Fever Within 48 Hours Sepsis New/Unexplained Change in Mental Status Sepsis Action Taken by Nursing 05/25/23 12:50 05/25/23 12:50 05/25/23 12:51 Temperature Temperature Source Pulse Rate 60 Pulse Rate [Apical] Pulse Rate from SpO2 Sensor 60 Pulse Rhythm Pulse Rhythm [Apical] Pulse Strength Pulse Strength [Apical] Respiratory Rate 14 Respiratory Effort / Characteristics Respiratory Depth Respiratory Pattern Blood Pressure 115/64 Blood Pressure [Right Arm] Blood Pressure Mean 84 Blood Pressure Mean [Right Arm] Blood Pressure Position Blood Pressure Position [Right Arm] Pulse Oximetry 95 96 Oxygen Delivery Method Room Air Sepsis Recent Fever Within 48 Hours Sepsis New/Unexplained Change in Mental Status Sepsis Action Taken by Nursing 05/25/23 13:00 05/25/23 13:01 05/25/23 13:01 Temperature Temperature Source Pulse Rate 62 61 Pulse Rate [Apical] Pulse Rate from SpO2 Sensor 63 62 Pulse Rhythm Pulse Rhythm [Apical] Pulse Strength Pulse Strength [Apical] Respiratory Rate 20 19 Respiratory Effort / Characteristics Respiratory Depth Respiratory Pattern Blood Pressure 144/55 H Blood Pressure [Right Arm] Blood Pressure Mean 83 Blood Pressure Mean [Right Arm] Blood Pressure Position Blood Pressure Position [Right Arm] Pulse Oximetry 94 96 Oxygen Delivery Method Sepsis Recent Fever Within 48 Hours Sepsis New/Unexplained Change in Mental Status Sepsis Action Taken by Nursing 05/25/23 13:30 05/25/23 13:30 05/25/23 13:52 Temperature Temperature Source Pulse Rate 61 81 Pulse Rate [Apical] Pulse Rate from SpO2 Sensor Pulse Rhythm Pulse Rhythm [Apical] Pulse Strength Pulse Strength [Apical] Respiratory Rate 18 13 Respiratory Effort / Characteristics Respiratory Depth Respiratory Pattern Blood Pressure 129/67 152/76 H Blood Pressure [Right Arm] Blood Pressure Mean 95 101 Blood Pressure Mean [Right Arm] Blood Pressure Position Blood Pressure Position [Right Arm] Pulse Oximetry Oxygen Delivery Method Sepsis Recent Fever Within 48 Hours Sepsis New/Unexplained Change in Mental Status Sepsis Action Taken by Nursing 05/25/23 14:00 05/25/23 14:00 05/25/23 14:30 Temperature Temperature Source Pulse Rate 61 60 Pulse Rate [Apical] Pulse Rate from SpO2 Sensor 61 60 Pulse Rhythm Pulse Rhythm [Apical] Pulse Strength Pulse Strength [Apical] Respiratory Rate 21 21 Respiratory Effort / Characteristics Respiratory Depth Respiratory Pattern Blood Pressure 132/68 138/67 Blood Pressure [Right Arm] Blood Pressure Mean 88 90 Blood Pressure Mean [Right Arm] Blood Pressure Position Blood Pressure Position [Right Arm] Pulse Oximetry 96 95 Oxygen Delivery Method Sepsis Recent Fever Within 48 Hours Sepsis New/Unexplained Change in Mental Status Sepsis Action Taken by Nursing General: Well developed well nourished not ill-appearing older male who appears in no acute distress, breathing comfortably on room air. Normal speech HEENT: Normal cephalic atraumatic. Pupils are equal round and reactive to light. Sclera are anicteric. Extraocular movements are intact. Oropharynx is pink with moist mucous membranes. No swelling of the mouth lips or tongue. Neck: Supple with a midline trachea. No meningeal signs or stiffness, no JVD or bruits. No Stridor. Chest: Clear to auscultation bilaterally. No wheezes or rhonchi. No increased work of breathing. Heart: Regular rate and rhythm without murmurs or gallops. Abdomen: Soft nontender, nondistended without rebound guarding or rigidity. Extremities: No cyanosis clubbing or edema. No calf tenderness or assymetry Spine/Back. Non tender to palpation. No CVA tenderness Skin: Good turgor without rashes. Neurologic exam: Cranial nerves two through 12 are intact. Motor and sensation are intact and symmetrical throughout. No tremor. No pronator drift Course Administered Medications Insulin Aspart (Insulin Aspart Per Unit Charge) 0 units SC ACHS DEEDEE Stop: 06/24/23 16:43 Last Admin: 05/25/23 17:44 Dose: Not Given Documented By: KENNEY Discontinued Medications Sodium Chloride (Nss) 250 mls @ 999 mls/hr IV .Q16M ONE Stop: 05/25/23 12:18 Last Infusion: 05/25/23 15:09 Dose: Infused Documented By: Admin: 05/25/23 12:30 Dose: 999 mls/hr Documented By: BRADY Medical Decision Making Differential Diagnosis Hypotension, dehydration, sepsis, anemia, electrolyte or metabolic abnormality, toxicologic, medication side effect, cardiac disease, arrhythmia Medical Records Attestation: I reviewed the patient's medical records. Home Medications Current Medication List: was personally reviewed by me Laboratory Data Attestation: I reviewed the patient's lab results. 05/25/23 11:55 05/25/23 11:55 Lab Results 05/25/23 05/25/23 05/25/23 Range/Units 11:55 12:22 13:52 WBC 8.49 (4.8-10.8) K/ul RBC 4.46 L (4.70-6.10) M/uL Hgb 13.7 L (14.0-18.0) g/dl Hct 43.3 (42.0-52.0) % MCV 97.1 (80.0-100.0) fL MCH 30.7 (25.0-34.0) pg MCHC 31.6 L (32.0-36.0) g/dL RDW Std Deviation 48.9 H (36.4-46.3) fL RDW Coeff of [place] 13.6 (11.5-14.5) % Plt Count 181 (130-400) K/uL MPV 9.5 (9.4-12.4) fL Immature Gran % (Auto) 0.8 % Neut % (Auto) 71.1 % Lymph % (Auto) 21.2 % Bonner % (Auto) 5.1 % Eos % (Auto) 1.3 % Baso % (Auto) 0.5 % Neut # (Auto) 6.04 (1.40-6.50) K/uL Lymph # (Auto) 1.80 (1.20-3.40) K/uL Bonner # (Auto) 0.43 (0.11-0.59) K/uL Eos # (Auto) 0.11 (0.00-0.50) K/uL Baso # (Auto) 0.04 (0.00-0.20) K/uL Immature Gran # (Auto) 0.07 (0.01-0.20) K/uL Sodium 139 (136-145) mmol/L Potassium 4.9 (3.5-5.1) mmol/L Chloride 106 (98-107) mmol/L Carbon Dioxide 27 (21-32) mmol/L Anion Gap 6 (3-11) BUN 16 (6-23) mg/dl Creatinine 0.87 (0.6-1.4) mg/dl Est Cr Clr Drug Dosing 63.2 ml/min Est GFR ( Amer) 91.9 ml/min Est GFR (Non-Af Amer) 79.3 ml/min BUN/Creatinine Ratio 18.4 (10-20) Glucose 174 H (70-99(Fasting)) mg/dl Lactate 2.1 H* (0.4-2.0) mmol/L Calcium 9.2 (8.6-10.3) mg/dl Magnesium 2.2 (1.7-2.4) mg/dl Total Bilirubin 0.5 (0.2-1.0) mg/dl Direct Bilirubin 0.1 (0-0.2) mg/dl AST 20 (13-39) U/L ALT 16 (7-52) U/L Alkaline Phosphatase 102 (34-104) U/L Troponin I High Sens 13.0 (0-20) pg/ml B-Natriuretic Peptide 173 H (0-100) pg/ml Total Protein 6.6 (6.0-8.3) gm/dl Albumin 3.9 (3.4-5.0) gm/dl Procalcitonin < 0.05 (0-0.5) ng/ml Urine Color Yellow Urine Appearance Clear (Clear) Urine pH 7.0 (4.5-7.5) Ur Specific [place] 1.024 (1.000-1.030) Urine Protein Negative (Negative) Urine Glucose (UA) 3+ H (Negative) Urine Ketones Negative (Negative) Urine Blood Negative (Negative) Urine Nitrite Negative (Negative) Urine Bilirubin Negative (Negative) Urine Urobilinogen Negative (Negative) Ur Leukocyte Esterase Negative (Negative) Imaging Data Attestation: I personally reviewed and interpreted this imaging study as follows: My Impression: Chest x-rayAICD in place. No acute infiltrate, failure, pneumothorax seen. Radiologist's Impression: Chest X-Ray 05/25/23 12:03 SINGLE VIEW CHEST CLINICAL HISTORY: Sepsis. FINDINGS: 2 AP, portable, upright chest radiographs are compared to study dated 12/05/2022. The patient is status post midline sternotomy. A 2-lead cardiac AICD is unchanged in position. The heart is enlarged but noting atherosclerotic calcification of the thoracic aorta. There is prominence of the pulmonary vasculature. Emphysema and chronic interstitial thickening is similar to previous. Foci of parenchymal scarring are seen throughout both lungs. No airspace consolidation or pleural effusion is identified. No pneumothorax is seen. The skeletal structures are osteopenic. There are chronic/healed left- sided rib fractures. IMPRESSION: 1. Cardiomegaly and AICD with prominence of the pulmonary vasculature. Correlate clinically for evidence of fluid overload/congestive change. 2. Advanced emphysema. 3. No airspace consolidation or large pleural effusion is identified. ACT 112: Negative or not required by law. Electronically signed by: Lee Hicks M.D. 05/25/2023 1:10 PM ECG Data Attestation: I personally reviewed and interpreted this ECG as follows: Indication: + weakness (Dizziness/lightheaded) Rate (beats per minute): 82 Rhythm: + other (Atrial paced rhythm) ECG Intervals/blocks: + Normal QRS and + Normal QT ECG Raymond: + Normal ECG Findings: no PACs or no PVCs Comparison ECG Date: from (02/08/23) Change: no significant change MDM Narrative This patient is an 83-year-old male comes in after being hypotensive he is asymptomatic and normotensive at present. This may be related to medications there is concern that he could have gotten mixed up on what he is supposed to take and not take. We are looking into this. He has nothing to suggest infection by history we did a full sepsis type workup and cardiac workup he has a pacemaker which interrogated IV access established chest x-ray was obtained blood testing and COVID bio testing were obtained he was reassessed frequently. He has no significant electrolyte or metabolic abnormality. Troponin is not elevated. His initial lactate was mildly elevated 2.1. He did receive a 250 cc IV normal saline bolus here his repeat lactate was normal. I do not think he is likely septic. I talked the patient at length about his medications. I had her ED pharmacist Beatriz also look into this and terms of his med list. [facility] It is unclear what the patient is actually taking. He is being managed by cardiology his primary doctor in the [place]. According to last cardiology note he is on Entresto and is supposed to stop the losartan is unclear whether he did that or not. There is a lot of confusion over what the patient has taking and what he is supposed to be on I do think he needs to be admitted/observed given his hypotension and the need to make sure he is taking the right medications and come up with a plan. I did consult Dr. Grissom and he saw the patient in ER for these measures. Continuous cardiac monitoring: Orders placed in EMR for continuous cardiac monitoring: Upon my evaluation patient noted to be in a paced rhythm with a rate of 61 Impression & Plan Hypotension, Dizziness, Cardiomyopathy, ICD (implantable cardioverter- defibrillator), dual, in situ Discharge Plan Visit Data Chief Complaint: Dizziness Stated Complaint: DIZZINESS ED Provider: Daren Carr Discharge Problem: Hypotension, Dizziness, Cardiomyopathy, ICD (implantable cardioverter- defibrillator), dual, in situ Patient Disposition: Admitted As Inpatient Discharge Instructions Interventions: ED Discharge Assessment Last Done: 05/25/23 15:59 Discharge Problem: Hypotension Qualifiers: Hypotension type: unspecified hypotension type Qualified Code(s): I95.9 - Hypotension, unspecified Cardiomyopathy Qualifiers: Cardiomyopathy type: unspecified Qualified Code(s): I42.9 - Cardiomyopathy, unspecified
[2023-05-25 12:18] LABS: Basophils # (auto) 0.04 K/uL (0.00-0.20); Basophils % (auto) 0.5 %; Eosinophils # (auto) 0.11 K/uL (0.00-0.50); Eosinophils % (auto) 1.3 %; Hematocrit (blood only) 43.3 % (42.0-52.0); Hemoglobin 13.7 g/dl (14.0-18.0); Immature Granulocytes # (auto) 0.07 K/uL (0.01-0.20); Immature Granulocytes % (auto) 0.8 %; Lymphocytes % (auto) 21.2 %; Mean Corpuscular Hemoglobin 30.7 pg (25.0-34.0); Mean Corpuscular Hgb Conc 31.6 g/dL (32.0-36.0); Mean Corpuscular Volume 97.1 fL (80.0-100.0); Mean Platelet Volume 9.5 fL (9.4-12.4); Monocytes # (auto) 0.43 K/uL (0.11-0.59); Monocytes % (auto) 5.1 %; Neutrophils # (auto) 6.04 K/uL (1.40-6.50); Neutrophils % (auto) 71.1 %; Platelet Count 181 K/uL (130-400); RDW Coefficient of Variation 13.6 % (11.5-14.5); RDW Standard Deviation 48.9 fL (36.4-46.3); Red Blood Count 4.46 M/uL (4.70-6.10); White Blood Count 8.49 K/ul (4.8-10.8)
[2023-05-25] MEDS: SODIUM CHLORIDE 0.9% 250 ML IV ONE (12:30)
[2023-05-25 12:48] LABS: Albumin Level 3.9 gm/dl (3.4-5.0); BUN Creatinine Ratio 18.4 (10-20); Bilirubin Direct 0.1 mg/dl (0-0.2); Bilirubin,Total 0.5 mg/dl (0.2-1.0); Calcium 9.2 mg/dl (8.6-10.3); Creatinine Clr Calc Pharmacy 63.2 ml/min; Est GFR (African American) 91.9 ml/min; Est GFR (Non-African American) 79.3 ml/min; Magnesium 2.2 mg/dl (1.7-2.4); Potassium 4.9 mmol/L (3.5-5.1); Total Protein 6.6 gm/dl (6.0-8.3)
--- NOTE | 2023-05-25 13:12 | XRay Report ---
SINGLE VIEW CHEST CLINICAL HISTORY: Sepsis. FINDINGS: 2 AP, portable, upright chest radiographs are compared to study dated 12/05/2022. The patien t is status post midline sternotomy. A 2-lead cardiac AICD is unchanged in position. The heart is enl arged but noting atherosclerotic calcification of the thoracic aorta. There is prominence of the pulm onary vasculature. Emphysema and chronic interstitial thickening is similar to previous. Foci of pare nchymal scarring are seen throughout both lungs. No airspace consolidation or pleural effusion is wilman ntified. No pneumothorax is seen. The skeletal structures are osteopenic. There are chronic/healed le ft-sided rib fractures. IMPRESSION: 1. Cardiomegaly and AICD with prominence of the pulmonary vasculature. Correlate clinically for evide nce of fluid overload/congestive change. 2. Advanced emphysema. 3. No airspace consolidation or large pleural effusion is identified. ACT 112: Negative or not required by law. Electronically signed by: Lee Hicks M.D. 05/25/2023 1:10 PM
--- NOTE | 2023-05-25 14:01 | History & Physical Report ---
Date of Service May 25, 2023 Assessment & Plan (1) Hypotension: Plan: Hypotension Patient seen at [facility] this morning with a blood pressure in the low 80s and no infectious symptoms. Was referred to the ER, patient has been [id number] while here with orthost atics pending Lactate is elevated without infectious symptoms, 250cc fluid given in ER and additional deferred /2 chest x-ray shows mild congestion and pulmonary vasculature but no diffuse edema or effusions, procalcitonin is negative, no ANNE is present and he does not appear volume contracted - # Last echo with EF 35-40%, aggressive fluids deferred as patient does not appear volume contracted - trop wnl - no acute EKG changes Differential includes iatrogenic hypotension, UTI, orthostasis. unclear if patient may have taken losartan in addition to his Entresto today. In addition patient has had chronic orthostatic hypotension and has had his beta-fam down titrated as a result of this, but has had continued symptoms nonetheless. Patient's daughter is returning home and will bring in all of his medications from the medicine cabinet for reconciliation to get a accurate picture of what he has been taking. He reports he takes no medications that are not in his medication cabinet. Discrepancies between [facility] med list and [facility] med list are present and patient is a poor historian unable to reconcile this. [facility] also notes that her list has not been updated due to patient difficulty reconciling this and is not thought to be accurate. Appreciate pharmacy assistance and calls in obtaining med lists. Patient active medications should be as follows based on review: Entresto 24-26 mg twice daily, breast dry inhaler, paroxetine 20 mg daily, atorvastatin 80 mg daily, glimepiride 2 mg daily, carvedilol 25 mg twice daily, PPI/rabeprazole 20 mg daily, Jardiance 10 mg daily. Losartan removed from med list, azithromycin/prednisone were prescribed for bronchitis which has resolved and he is no longer taking these medications. Has finished the steroids 2 weeks ago and did not have any symptoms initially, low suspicion for secondary AI. Per external fill review recently w./ carvedilol uptitrated from 12.5 mg twice daily to 25 mg on 03/28/2023.? Whether this was the precipitating factor worsening his orthostatic hypotension will temporarily decrease this back to 12.5 mg twice daily. Evening dose of Entresto held pending clarification on whether patient had also taken losartan today. -Lactate repeat pending (2) CHF (congestive heart failure): Plan: History of ischemic cardiomyopathy, heart failure with EF 45%, history of [place] and ICD placement With history of orthostasis on goal-directed medical therapy in the past and down titration of beta-fam due to this Aspirin continued SGLT2 continued No acute ischemic changes, patient denies chest pain at any point, high- sensitivity troponin is (3) Pulmonary emphysema: Plan: History of COPD/emphysema, ongoing tobacco use No wheezing on admission, no acute exacerbation Continue home inhalers DuoNebs as needed for wheezing Patient down to around 6 cigarettes/day. Cessation encouraged, patient reports that he does not think he can get abstinent from cigarettes and has been smoking since he was a kid does recognize its potential health benefits. Will continue to attempt to reduce his smoking intake and follow-up as outpatient for this Nicotine patch ordered (4) Raynaud's disease: Plan: Raynaud's Calcium channel fam deferred as outpt due to orthostatic hypotension on his HF tx (5) UTI (urinary tract infection): Plan: Patient at increased risk of UTI due to SGLT2 treatment as endorsed dysuria intermittent over the last 2 to 3 days although not present day of admission. No fever/chills procalcitonin is negative and no leukocytosis. UA uninfected appearing, no abx indicated (6) DM2 (diabetes mellitus, type 2): Plan: Basal bolus SSI while inpatient, goal BSG [id number] Jardiance continued for GDMT HF, no UTI seen on UA Plan DVT prophylaxis: Heparin Diet: DM 2/heart healthy Disposition: Medical telemetry CODE STATUS: DNR/DNI History of Present Illness Primary Care Provider: Anna Devi MD Luis is an 83-year-old male referred to the ER from the [facility] for hypotension to the 80s and dizziness when standing. On ER evaluation BP 120s. [facility] cardiology and has had medication changes over the last several months. Patient is a very poor historian is unable to give a accurate list of what he has been taking and has had multiple medication changes. Was supposed be switched from losartan 25 daily to Entresto this past January; patient may have accidentally taken losartan with his Entresto. [facility] list is pending to compare to our cardiology last, patient will have pill bottles brought in to evaluate what he has actually been taking, it is recommended for 24-hour observation and medication washout due to persistent hypotension severe enough to cause an elevated lactate and resting blood pressure of the 80s. Patient seen with his and his daughter at the bedside. They have a med list that they think is up-to-date but has multiple crossed off medications and doses without an attached medication making it extremely unclear. They are not sure if he is taking both losartan and Entresto at this time. Patient reports he thinks he takes 7 medications in the morning and took all of these, he notes that he keeps his pill containers in the medicine cabinet and takes a pill out of each canister as directed in the morning. Does not know most of the names of the medicines by heart, does know that he was started on Jardiance in January and was confused as his heart doctor started this but it was a diabetic medication. Clarified that this was goal-directed therapy for heart failure with patient Allergies Allergy/AdvReac Type Severity Reaction Status Date / Time No Known Drug Allergies Allergy Unknown Verified 04/20/23 10:02 Home Medications Medication Instructions Recorded Confirmed Type multivitamin (Multiple Vitamins 1 tab PO DAILY 12/05/18 04/20/23 History tablet) cholecalciferol (vitamin D3) 25 1,000 units PO DAILY #90 tabs 12/13/18 04/20/23 History mcg (1,000 unit) tablet guaifenesin 600 mg tablet, 600 mg PO BID PRN congestion #120 11/09/21 04/20/23 Rx extended release 12 hr (Mucinex) tabs albuterol sulfate 90 mcg/actuation 2 inh inhalation Q6H PRN shortness 06/05/22 04/20/23 Rx aerosol inhaler (Ventolin HFA) of breath or wheezing #6.7 grams budesonide 160 mcg-glycopyr 9 2 inh inhalation BID #10.7 grams 06/05/22 05/25/23 Rx mcg-formot 4.8 mcg/actuation HFA inhaler (Breztri Aerosphere) rabeprazole 20 mg tablet,delayed 20 mg PO DAILY #90 tabs 06/22/22 04/20/23 Rx release mecobalamin (vitamin B12) 1,000 1,000 mcg PO DAILY 08/14/22 04/20/23 History mcg lozenges atorvastatin 80 mg tablet 80 mg PO HS #90 tabs 11/03/22 05/25/23 Rx aspirin 81 mg tablet,delayed 81 mg PO DAILY 12/05/22 05/25/23 History release carvedilol 25 mg tablet 25 mg PO BID 12/05/22 05/25/23 History empagliflozin 10 mg tablet 10 mg PO DAILY #90 tabs 12/20/22 05/25/23 Rx (Jardiance) sacubitril 24 mg-valsartan 26 mg 1 tab PO BID #60 tabs 02/08/23 05/25/23 Rx tablet (Entresto) glimepiride 2 mg tablet 2 mg PO QAM #90 tabs 03/29/23 05/25/23 Rx azithromycin 250 mg tablet See Rx Instructions PO .COMPLEX #6 04/20/23 04/20/23 Rx tabs prednisone 20 mg tablet See Rx Instructions PO .COMPLEX 04/20/23 04/20/23 Rx #30 tabs paroxetine HCl 20 mg tablet 20 mg PO DAILY #90 tabs 05/10/23 05/25/23 Rx Past Med/Surg History Medical History Inguinal hernia Sinus bradycardia Raynaud's disease Solitary pulmonary nodule Diabetes mellitus Chronic cough CAD (coronary artery disease) Barretts esophagus Aortic valve sclerosis Aortic aneurysm Cardiomyopathy Surgical History H/O heart surgery Family History Daughter Crohn's colitis Unknown Heart disease Other Myocardial infarction Denies family history of Ovarian cancer Prostate cancer Breast cancer Colorectal cancer Social History Smoking Status: Current every day smoker Tobacco Type: Cigarettes Age Started Using Tobacco: 17; Cigarettes Per Day: 10; Second Hand Exposure: Yes; Do You Dip or Chew Tobacco: No; Hx Alcohol Use: No Hx Substance Use: No Preferred Language: Vietnamese Communication Ability: Effective Hearing Ability: Use of Hearing Aid Dietary Assistant Required: No Beliefs That Will Affect Care: None marital status: Current Living Situation: Spouse current occupational status: retired How many Children do You have: 3 Feels Safe at Home: Yes Childhood Exposure to Second-Hand Smoke: Yes Diet: regular caffeine: Yes Dental Care, Regularly: Yes Physical Activity Frequency: 3-4 Times per Week Seatbelt Use: always Sunscreen Use: No Assistive Devices: Hearing Aid - Bilateral Physical Exam Physical Exam: General: A&Ox3. NAD. Cooperative. HEENT: Atraumatic, normocephalic. Vision/hearing intact Pulm: CTAB A&P. -wheezes, -rales, -rhonchi. Symmetrical chest rise. No increased work of breathing. No respiratory distress. Cardiac: RRR, -mrg. Radial pulses intact and symmetrical. Abdominal: Nontender, nondistended, soft. BS present. Ext; warm/dry Results & Data Results & Data Vital Signs (Past 12 Hours) Vital Signs Temp Pulse Pulse Resp BP BP Pulse Ox 05/25/23 12:51 96 05/25/23 12:49 60 18 115/64 96 05/25/23 12:00 72 05/25/23 11:48 36.5 C 78 16 128/74 97 O2 Del Method 05/25/23 12:51 Room Air 05/25/23 12:49 Room Air 05/25/23 12:00 05/25/23 11:48 Room Air PG Care Time/CCT Total # of Minutes Spent Total Time Spent with Patient: Total time spent is greater than 50% in coordination of care (as documented) at patient's floor/unit and/or counseling patient: Coding Level of Care Code 64548 INT INP/OBS CARE 3/75MIN Diagnoses Hypotension I95.9 CHF (congestive heart failure) I50.9 Pulmonary emphysema J43.9 Raynaud's disease I73.00 UTI (urinary tract infection) N39.0 DM2 (diabetes mellitus, type 2) E11.9
[2023-05-25 14:03] LABS: Adenovirus PCR Not Detected (NotDetected); Bordetella parapertussis PCR Not Detected (NotDetected); Bordetella pertussis PCR Not Detected (NotDetected); Chlamydia pneumoniae PCR Not Detected (NotDetected); Coronavirus 229E PCR Not Detected (NotDetected); Coronavirus CoV-2 (COVID19)PCR Not Detected (NotDetected); Coronavirus HKU1 PCR Not Detected (NotDetected); Coronavirus NL63 PCR Not Detected (NotDetected); Coronavirus OC43PCR Not Detected (NotDetected); Human Metapneumovirus PCR Not Detected (NotDetected); Influenza A PCR Not Detected (NotDetected); Influenza B PCR Not Detected (NotDetected); Mycoplasma pneumoniae PCR Not Detected (NotDetected); Parainfluenza Virus 1 PCR Not Detected (NotDetected); Parainfluenza Virus 2 PCR Not Detected (NotDetected); Parainfluenza Virus 3 PCR Not Detected (NotDetected); Parainfluenza Virus 4 PCR Not Detected (NotDetected); Respiratory Syncytial VirusPCR Not Detected (NotDetected); Rhinovirus/Enterovirus PCR Not Detected (NotDetected)
[2023-05-25 14:38] LABS: Appearance Urine Clear (Clear); Bilirubin Urine Negative (Negative); Blood Urine Negative (Negative); Color Urine Yellow; Glucose Urine UA 3+ (Negative); Ketones Urine Negative (Negative); Leukocyte Esterase Urine Negative (Negative); Nitrite Urine Negative (Negative); Protein Urine Negative (Negative); Specific Gravity Urine 1.024 (1.000-1.030); Urobilinogen Urine Negative (Negative)
[2023-05-25] MEDS ORDERED: GLUCOSE 40% GEL 15 GM TUBE PO PRN (16:44)
[2023-05-25] MEDS ORDERED: GLUCOSE 10 TAB/TUBE PO PRN (16:44)
[2023-05-25] MEDS ORDERED: GLUCAGON FOR INJ 1 MG VIAL SQ PRN (16:44)
[2023-05-25] MEDS ORDERED: CARBOHYDRATES FOR HYPOGLYCEMIA PO PRN (16:44)
[2023-05-25] MEDS ORDERED: DEXTROSE 50% 50 ML SYRINGE IV PRN (16:44)
[2023-05-25] MEDS: INSULIN ASPART PER UNIT CHARGE SC SCH (17:44)
[2023-05-25] MEDS: carvediloL 12.5 MG TAB PO SCH (20:15)
[2023-05-25] MEDS: ATORVASTATIN 40 MG TAB PO SCH (20:15)
[2023-05-25] MEDS: VALSARTAN/SACUBITRIL 26/24MG TAB PO SCH (20:16)
[2023-05-25] MEDS: HEPARIN SOD 5,000 UNIT/0.5 ML VIAL SQ SCH (20:16)
[2023-05-25] MEDS: LANTUS PER UNIT CHARGE SQ SCH (20:25)
[2023-05-25] MEDS ORDERED: NON-FORMULARY MEDICATION (Budesonide-Glycopyr-Formoterol [Breztri Aerosphere] 160-9-4.8 mc INH SCH (21:00)
[2023-05-26 07:11] LABS: Estimated Average Glucose 174 mg/dl; Hemoglobin A1C 7.7 % (4.5-5.6)
[2023-05-26] MEDS: ASPIRIN 81 MG ECTAB PO SCH (08:21)
[2023-05-26] MEDS: FLUTICASONE FUROATE 200MCG 14 PUFFS/INHALER INH SCH (08:22)
[2023-05-26] MEDS: UMECLIDINIUM/VILANTEROL 62.5/25MCG 7 PUFFS/INHALER INH SCH (08:23)
[2023-05-26] MEDS: NICOTINE 14 MG/24 HR PATCH TD SCH (08:23)
[2023-05-26] MEDS: PARoxetine HCL 20 MG TAB PO SCH (08:23)
[2023-05-26] MEDS: EMPAGLIFLOZIN 10 MG TAB PO SCH (08:25)
--- NOTE | 2023-05-26 12:44 | Hospitalist Progress Note ---
Date of Service May 26, 2023 Assessment & Plan (1) Hypotension: Plan: Possibly due to overmedication. At home, on Coreg 25 mg and Entresto The dose of Coreg was reduced to 12.5 and this morning his blood pressure seems stable Will keep him on this current regimen and likely discharge tomorrow Monitor blood culture results Lactic acid down to normal (2) CHF (congestive heart failure): Plan: History of ischemic cardiomyopathy, heart failure with EF 45%, history of [place] and ICD placement With history of orthostasis on goal-directed medical therapy in the past and down titration of beta-fam due to this Aspirin continued SGLT2 continued No acute ischemic changes, patient denies chest pain at any point (3) Pulmonary emphysema: Plan: History of COPD/emphysema, ongoing tobacco use No wheezing on admission, no acute exacerbation Continue home inhalers DuoNebs as needed for wheezing Patient down to around 6 cigarettes/day. Cessation encouraged, patient reports that he does not think he can get abstinent from cigarettes and has been smoking since he was a kid does recognize its potential health benefits. Will continue to attempt to reduce his smoking intake and follow-up as outpatient for this Nicotine patch ordered (4) Raynaud's disease: Plan: Raynaud's Calcium channel fam deferred as outpt due to orthostatic hypotension on his HF tx (5) UTI (urinary tract infection): Plan: Patient at increased risk of UTI due to SGLT2 treatment as endorsed dysuria intermittent over the last 2 to 3 days although not present day of admission. No fever/chills procalcitonin is negative and no leukocytosis. UA uninfected appearing, no abx indicated (6) DM2 (diabetes mellitus, type 2): Plan: Basal bolus SSI while inpatient, goal BSG [id number] Jardiance continued for GDMT HF, no UTI seen on UA Plan DVT prophylaxis: Heparin Diet: DM 2/heart healthy Disposition: Medical telemetry CODE STATUS: DNR/DNI Likely discharge tomorrow Admission and Anticipated Discharge Date Admission Date: May 25, 2023 Subjective Patient feels well today. Denies chest pain, shortness of breath. He denies dizziness, palpitations Review of Systems Review of Systems: All systems reviewed & are unremarkable except as noted in Subjective Physical Exam Physical Exam: General: Awake, conversant Heart: S1, S2/regular rate and rhythm, no murmur rubs or gallops Lungs: Clear to auscultation bilaterally. Normal effort Abdomen: Soft/nontender/nondistended. No hepatosplenomegaly Extremities: No clubbing/cyanosis. No edema Behavior: Appropriate, cooperative Results & Data Results & Data Vital Signs (Past 12 Hours) Vital Signs Temp Pulse Pulse Pulse Resp BP BP 05/26/23 12:06 36.6 C 63 18 116/63 05/26/23 07:35 36.5 C 63 18 126/72 05/26/23 07:21 05/26/23 06:00 63 05/26/23 03:59 36.6 C 71 18 99/57 L Pulse Ox O2 Del Method 05/26/23 12:06 94 Room Air 05/26/23 07:35 95 Room Air 05/26/23 07:21 Room Air 05/26/23 06:00 05/26/23 03:59 92 Room Air PG Care Time/CCT Total # of Minutes Spent Total Time Spent with Patient: Total time spent is greater than 50% in coordination of care (as documented) at patient's floor/unit and/or counseling patient: Coding Level of Care Code 68109 SUB INP/OBS CARE 2/35MIN Diagnoses Hypotension I95.9 Hypotension type: unspecified hypotension type CHF (congestive heart failure) I50.9 Pulmonary emphysema J43.9 Raynaud's disease I73.00 UTI (urinary tract infection) N39.0 DM2 (diabetes mellitus, type 2) E11.9 (1) Hypotension Hypotension type: unspecified hypotension type Qualified Code(s): I95.9 - Hypotension, unspecified
--- NOTE | 2023-05-26 21:43 | Electrocardiogram Report ---
Test Reason : Blood Pressure : / mmHG Vent. Rate : 082 BPM Atrial Rate : 082 BPM P-R Int : 232 ms QRS Dur : 082 ms QT Int : 390 ms P-R-T Axes : 075 067 096 degrees QTc Int : 455 ms Atrial-paced rhythm with prolonged AV conduction Cannot rule out Anteroseptal infarct (cited on or before 08-FEB-2023) Nonspecific T wave abnormality Abnormal ECG When compared with ECG of 08-FEB-2023 11:34, RSR' pattern in V1 is no longer Present Questionable change in initial forces of Anterior leads Confirmed by Tristian Stokes ([id number] on 05/26/2023 9:43:18 PM Referred By: REFERRED SELF Confirmed By:Tristian Stokes
--- NOTE | 2023-05-27 12:06 | Hospitalist Progress Note ---
Date of Service May 27, 2023 Assessment & Plan (1) Hypotension: Plan: Possibly due to overmedication. At home, on Coreg 25 mg and Entresto lowest dose The dose of Coreg was reduced to 12.5. Overnight, his blood pressure has been low with systolic in the 90s. This morning, Coreg was held. The patient still got Entresto. Currently his blood pressure still remains low Changed holding parameters to hold Coreg when systolic blood pressure less than 95 to hold Entresto when systolic blood pressures less than 110. Will keep him on this current regimen and likely discharge tomorrow Monitor blood culture results-have been negative so far Lactic acid down to normal (2) CHF (congestive heart failure): Plan: History of ischemic cardiomyopathy, heart failure with EF 45%, history of [place] and ICD placement With history of orthostasis on goal-directed medical therapy in the past and down titration of beta-fam due to this Aspirin continued SGLT2 continued No acute ischemic changes, patient denies chest pain at any point (3) Pulmonary emphysema: Plan: History of COPD/emphysema, ongoing tobacco use No wheezing on admission, no acute exacerbation Continue home inhalers DuoNebs as needed for wheezing Patient down to around 6 cigarettes/day. Cessation encouraged, patient reports that he does not think he can get abstinent from cigarettes and has been smoking since he was a kid does recognize its potential health benefits. Will continue to attempt to reduce his smoking intake and follow-up as outpatient for this Nicotine patch ordered (4) Raynaud's disease: Plan: Raynaud's Calcium channel fam deferred as outpt due to orthostatic hypotension on his HF tx (5) UTI (urinary tract infection): Plan: Patient at increased risk of UTI due to SGLT2 treatment as endorsed dysuria intermittent over the last 2 to 3 days although not present day of admission. No fever/chills procalcitonin is negative and no leukocytosis. UA uninfected appearing, no abx indicated (6) DM2 (diabetes mellitus, type 2): Plan: Basal bolus SSI while inpatient, goal BSG [id number] Jardiance continued for GDMT HF, no UTI seen on UA Plan DVT prophylaxis: Heparin Diet: DM 2/heart healthy Disposition: Medical telemetry CODE STATUS: DNR/DNI Likely discharge tomorrow if blood pressure stable Admission and Anticipated Discharge Date Admission Date: May 25, 2023 Subjective Patient feels well today. However noted that his blood pressure has been low overnight with a systolic in the 90s. This morning, the nurse was only able to give him the Entresto and had to hold the Coreg. He denies feeling dizzy or lightheaded. No palpitations. Denies chest pain or shortness of breath. Review of Systems Review of Systems: All systems reviewed & are unremarkable except as noted in Subjective Physical Exam Physical Exam: General: Awake, conversant Heart: S1, S2/regular rate and rhythm, no murmur rubs or gallops Lungs: Clear to auscultation bilaterally. Normal effort Abdomen: Soft/nontender/nondistended. No hepatosplenomegaly Extremities: No clubbing/cyanosis. No edema Behavior: Appropriate, cooperative Results & Data Results & Data Vital Signs (Past 12 Hours) Vital Signs Temp Pulse Pulse Resp BP Pulse Ox O2 Del Method 05/27/23 11:37 36.6 C 62 20 93/58 L 95 Room Air 05/27/23 08:50 67 106/63 05/27/23 08:20 36.7 C 70 20 105/66 93 Room Air 05/27/23 07:04 Room Air 05/27/23 06:00 66 05/27/23 03:58 36.4 C L 83 18 96/60 L 95 Room Air 05/27/23 01:38 97/60 L 05/27/23 00:06 36.6 C 80 18 92/54 L 96 Room Air Laboratory Results Abnormal lab results 05/26/23 05/26/23 05/27/23 Range/Units 12:28 19:57 08:10 POC Glucose 113 H 120 H 104 H (70-99) mg/dl PG Care Time/CCT Total # of Minutes Spent Total Time Spent with Patient: Total time spent is greater than 50% in coordination of care (as documented) at patient's floor/unit and/or counseling patient: Coding Level of Care Code 62707 SUB INP/OBS CARE 2/35MIN Diagnoses Hypotension I95.9 Hypotension type: unspecified hypotension type CHF (congestive heart failure) I50.9 Pulmonary emphysema J43.9 Raynaud's disease I73.00 UTI (urinary tract infection) N39.0 DM2 (diabetes mellitus, type 2) E11.9 (1) Hypotension Hypotension type: unspecified hypotension type Qualified Code(s): I95.9 - Hypotension, unspecified
[2023-05-28 07:38] LABS: Hematocrit (blood only) 41.3 % (42.0-52.0); Hemoglobin 13.5 g/dl (14.0-18.0); Mean Corpuscular Hemoglobin 30.9 pg (25.0-34.0); Mean Corpuscular Hgb Conc 32.7 g/dL (32.0-36.0); Mean Corpuscular Volume 94.5 fL (80.0-100.0); Mean Platelet Volume 9.5 fL (9.4-12.4); Platelet Count 186 K/uL (130-400); RDW Coefficient of Variation 13.2 % (11.5-14.5); RDW Standard Deviation 45.5 fL (36.4-46.3); Red Blood Count 4.37 M/uL (4.70-6.10); White Blood Count 7.84 K/ul (4.8-10.8)
[2023-05-28 08:00] LABS: BUN Creatinine Ratio 26.6 (10-20); Calcium 8.5 mg/dl (8.6-10.3); Creatinine Clr Calc Pharmacy 67.2 ml/min; Est GFR (African American) 95.6 ml/min; Est GFR (Non-African American) 82.5 ml/min; Potassium 4.3 mmol/L (3.5-5.1)
[2023-05-28] MEDS: SODIUM CHLORIDE 0.9% 500 ML IV ONE (11:55)
--- NOTE | 2023-05-28 14:17 | Hospitalist Progress Note ---
Date of Service May 28, 2023 Assessment & Plan (1) Hypotension: Plan: Possibly due to overmedication in the setting of weight loss At home, on Coreg 25 mg and Entresto lowest dose The dose of Coreg was reduced to 12.5 and Entresto was continued Overnight, his blood pressure has been low with systolic in the 90s. This morning, he got both Coreg and Entresto Currently his blood pressure still remains low I decided to discontinue Entresto and only continue with 12.5 mg of Coreg Patient remains asymptomatic with the low blood pressure. Renal function is not affected by low blood pressure either. Blood culture negative for 48 hours Lactic acid down to normal (2) CHF (congestive heart failure): Plan: History of ischemic cardiomyopathy, heart failure with EF 45%, history of [place] and ICD placement With history of orthostasis on goal-directed medical therapy in the past and down titration of beta-fam due to this Aspirin continued SGLT2 continued No acute ischemic changes, patient denies chest pain at any point Patient says that he has lost weight in the past several months. That could be the reason for why his blood pressure is low on his usual regimen. He may be discharged off of Entresto and only on Coreg. He will need a cardiology follow-up soon post discharge (3) Pulmonary emphysema: Plan: History of COPD/emphysema, ongoing tobacco use No wheezing on admission, no acute exacerbation Continue home inhalers DuoNebs as needed for wheezing Patient down to around 6 cigarettes/day. Cessation encouraged, patient reports that he does not think he can get abstinent from cigarettes and has been smoking since he was a kid does recognize its potential health benefits. Will continue to attempt to reduce his smoking intake and follow-up as outpatient for this Nicotine patch ordered (4) Raynaud's disease: Plan: Raynaud's Calcium channel fam deferred as outpt due to orthostatic hypotension on his HF tx (5) UTI (urinary tract infection): Plan: Patient at increased risk of UTI due to SGLT2 treatment as endorsed dysuria intermittent over the last 2 to 3 days although not present day of admission. No fever/chills procalcitonin is negative and no leukocytosis. UA uninfected appearing, no abx indicated (6) DM2 (diabetes mellitus, type 2): Plan: Basal bolus SSI while inpatient, goal BSG [id number] Jardiance continued for GDMT HF, no UTI seen on UA Plan DVT prophylaxis: Heparin Diet: DM 2/heart healthy Disposition: Medical telemetry CODE STATUS: DNR/DNI Likely discharge tomorrow if blood pressure stable Admission and Anticipated Discharge Date Admission Date: May 28, 2023 Subjective Patient has no complaints. No dizziness or lightheadedness. However his blood pressure has remained low. He got 12.5 mg of Coreg and his Entresto this morning. Currently his blood pressure is 85/45. He still remains asymptomatic. The patient is on Coreg and Entresto because of known cardiomyopathy. He has been on this regimen for quite some time. However, lately he has lost weight. He says that over the last 6 to 8 months, he has lost weight unintentionally. Review of Systems Review of Systems: All systems reviewed & are unremarkable except as noted in Subjective Physical Exam Physical Exam: General: Awake, conversant Heart: S1, S2/regular rate and rhythm, no murmur rubs or gallops Lungs: Clear to auscultation bilaterally. Normal effort Abdomen: Soft/nontender/nondistended. No hepatosplenomegaly Extremities: No clubbing/cyanosis. No edema Behavior: Appropriate, cooperative Results & Data Results & Data Vital Signs (Past 12 Hours) Vital Signs Temp Pulse Pulse Resp BP Pulse Ox O2 Del Method 05/28/23 11:21 36.6 C 60 16 85/45 L 94 Room Air 05/28/23 09:19 Room Air 05/28/23 07:35 36.7 C 71 16 100/59 L 95 Room Air 05/28/23 07:10 61 05/28/23 03:06 36.6 C 77 18 91/54 L 96 Room Air Laboratory Results Abnormal lab results 05/27/23 05/28/23 05/28/23 Range/Units 17:17 07:23 08:03 RBC 4.37 L (4.70-6.10) M/uL Hgb 13.5 L (14.0-18.0) g/dl Hct 41.3 L (42.0-52.0) % Chloride 108 H (98-107) mmol/L BUN/Creatinine Ratio 26.6 H (10-20) Glucose 125 H (70-99(Fasting)) mg/dl POC Glucose 149 H 116 H (70-99) mg/dl Calcium 8.5 L (8.6-10.3) mg/dl PG Care Time/CCT Total # of Minutes Spent Total Time Spent with Patient: Total time spent is greater than 50% in coordination of care (as documented) at patient's floor/unit and/or counseling patient: Coding Level of Care Code 58500 SUB INP/OBS CARE 2/35MIN Diagnoses Hypotension I95.9 Hypotension type: unspecified hypotension type CHF (congestive heart failure) I50.9 Pulmonary emphysema J43.9 Raynaud's disease I73.00 UTI (urinary tract infection) N39.0 DM2 (diabetes mellitus, type 2) E11.9 (1) Hypotension Hypotension type: unspecified hypotension type Qualified Code(s): I95.9 - Hypotension, unspecified
--- NOTE | 2023-05-29 14:29 | Hospitalist Progress Note ---
Date of Service May 29, 2023 Assessment & Plan (1) Hypotension: Plan: Possibly due to overmedication in the setting of weight loss At home, on Coreg 25 mg and Entresto lowest dose Patient had only received 12.5 mg of Coreg last night but his blood pressure has been in the 80s. I discontinued both Coreg and Entresto this morning. Monitor blood pressure off of both medications Likely discharge tomorrow Patient remains asymptomatic with the low blood pressure. Renal function is not affected by low blood pressure either. Blood culture negative for 48 hours Lactic acid down to normal (2) CHF (congestive heart failure): Plan: Patient has chronic systolic congestive heart failure History of ischemic cardiomyopathy, heart failure with EF 45%, history of [place] and ICD placement With history of orthostasis on goal-directed medical therapy in the past and down titration of beta-fam due to this Aspirin continued SGLT2 continued No acute ischemic changes, patient denies chest pain at any point Patient says that he has lost weight in the past several months. That could be the reason for why his blood pressure is low on his usual regimen. He may be discharged off of Entresto and Coreg. He will need a cardiology follow-up soon post discharge (3) Pulmonary emphysema: Plan: History of COPD/emphysema, ongoing tobacco use No wheezing on admission, no acute exacerbation Continue home inhalers DuoNebs as needed for wheezing Patient down to around 6 cigarettes/day. Cessation encouraged, patient repor ts that he does not think he can get abstinent from cigarettes and has been smoking since he was a kid does recognize its potential health benefits. Will continue to attempt to reduce his smoking intake and follow-up as outpatient for this Nicotine patch ordered (4) Raynaud's disease: Plan: Raynaud's Calcium channel fam deferred as outpt due to orthostatic hypotension on his HF tx (5) UTI (urinary tract infection): Plan: Patient at increased risk of UTI due to SGLT2 treatment as endorsed dysuria intermittent over the last 2 to 3 days although not present day of admission. No fever/chills procalcitonin is negative and no leukocytosis. UA uninfected appearing, no abx indicated (6) DM2 (diabetes mellitus, type 2): Plan: Basal bolus SSI while inpatient, goal BSG [id number] Jardiance continued for GDMT HF, no UTI seen on UA Plan DVT prophylaxis: Heparin Diet: DM 2/heart healthy Disposition: Medical telemetry CODE STATUS: DNR/DNI Likely discharge tomorrow if blood pressure stable Admission and Anticipated Discharge Date Admission Date: May 28, 2023 Subjective Patient feels well. However noted that his blood pressure was in the 80s overnight. He had only received 12.5 of Coreg last night. Both Coreg and Entresto have been discontinued today. Review of Systems Review of Systems: All systems reviewed & are unremarkable except as noted in Subjective Physical Exam Physical Exam: General: Awake, conversant Heart: S1, S2/regular rate and rhythm, no murmur rubs or gallops Lungs: Clear to auscultation bilaterally. Normal effort Abdomen: Soft/nontender/nondistended. No hepatosplenomegaly Extremities: No clubbing/cyanosis. No edema Behavior: Appropriate, cooperative Results & Data Results & Data Vital Signs (Past 12 Hours) Vital Signs Temp Pulse Pulse Resp BP BP Pulse Ox 05/29/23 11:39 36.5 C 63 16 133/75 144/67 H 96 05/29/23 07:42 05/29/23 07:39 36.6 C 65 16 109/63 96 05/29/23 07:29 60 05/29/23 03:23 88/46 L 05/29/23 03:02 36.4 C L 68 18 80/43 L 93 O2 Del Method 05/29/23 11:39 Room Air 05/29/23 07:42 Room Air 05/29/23 07:39 Room Air 05/29/23 07:29 05/29/23 03:23 05/29/23 03:02 Room Air Laboratory Results Abnormal lab results 05/28/23 Range/Units 17:03 POC Glucose 110 H (70-99) mg/dl PG Care Time/CCT Total # of Minutes Spent Total Time Spent with Patient: Total time spent is greater than 50% in coordination of care (as documented) at patient's floor/unit and/or counseling patient: Coding Level of Care Code 54594 SUB INP/OBS CARE 2/35MIN Diagnoses Hypotension I95.9 Hypotension type: unspecified hypotension type CHF (congestive heart failure) I50.9 Pulmonary emphysema J43.9 Raynaud's disease I73.00 UTI (urinary tract infection) N39.0 DM2 (diabetes mellitus, type 2) E11.9 (1) Hypotension Hypotension type: unspecified hypotension type Qualified Code(s): I95.9 - Hypotension, unspecified
[2023-05-30 08:20] VITALS: BP 114/72; PULSE 84; RESP 15; TEMP 97.7; O2SAT 98
[2023-05-30] MEDS: carvediloL 6.25 MG TAB PO SCH (08:51)
--- NOTE | 2023-05-30 10:12 | Discharge Summary ---
Date of Service May 30, 2023 Admission HPI Per Admitting Provider Luis is an 83-year-old male referred to the ER from the [place] for hypotension to the 80s and dizziness when standing. On ER evaluation BP 120s. [facility] cardi[facility] and has had medication changes over the last several months. Patient is a very poor historian is unable to give a accurate list of what he has been taking and has had multiple medication changes. Was supposed be switched from losartan 25 daily to Entresto this past January; patient may have accidentally taken losartan with his Entresto. [place] reconciliation list is pending to compare to our cardiology last, patient will have pill bottles brought in to evaluate what he has actually been taking, it is recommended for 24-hour observation and medication washout due to persistent hypotension severe enough to cause an elevated lactate and resting blood pressure of the 80s. Patient seen with his and his daughter at the bedside. They have a med list that they think is up-to-date but has multiple crossed off medications and doses without an attached medication making it extremely unclear. They are not sure if he is taking both losartan and Entresto at this time. Patient reports he thinks he takes 7 medications in the morning and took all of these, he notes that he keeps his pill containers in the medicine cabinet and takes a pill out of each canister as directed in the morning. Does not know most of the names of the medicines by heart, does know that he was started on Jardiance in January and was confused as his heart doctor started this but it was a diabetic medication. Clarified that this was goal-directed therapy for heart failure with patient Principal Diagnosis Hypotension due to a combination of overmedication and unintentional weight loss. Discharge Exam General: Awake, conversant Heart: S1, S2/regular rate and rhythm, no murmur rubs or gallops Lungs: Clear to auscultation bilaterally. Normal effort Abdomen: Soft/nontender/nondistended. No hepatosplenomegaly Extremities: No clubbing/cyanosis. No edema Behavior: Appropriate, cooperative Discharge Data Allergies Allergy/AdvReac Type Severity Reaction Status Date / Time No Known Drug Allergies Allergy Unknown Verified 04/20/23 10:02 Consultations 05/25/23 14:01 ED Decision to Admit Stat Hospital Course (1) Hypotension: Possibly due to overmedication in the setting of weight loss At home, on Coreg 25 mg and Entresto lowest dose After stopping both Coreg and Entresto, his blood pressure is finally stable. I plan to discharge him on 6.25 mg of Coreg twice daily only. Entresto will be discontinued. He has been advised to follow-up with his PCP and special assets officer within 1 week. He says that he has had an intentional weight loss in the last several months and believes that that is the reason for he is now hypotensive on his usual regimen. He will need to talk to his PCP about his unintentional weight loss. Patient remains asymptomatic with the low blood pressures. Renal function is not affected by the low blood pressure either. Lactic acid is down to normal. Blood cultures have been negative (2) CHF (congestive heart failure): Patient has chronic systolic congestive heart failure History of ischemic cardiomyopathy, heart failure with EF 45%, history of [place] and ICD placement With history of orthostasis on goal-directed medical therapy in the past and down titration of beta-fam due to this Aspirin continued SGLT2 continued No acute ischemic changes, patient denies chest pain at any point Patient says that he has lost weight in the past several months. That could be the reason for why his blood pressure is low on his usual regimen. He will be discharged off of Entresto. The dose of Coreg has been reduced to 6.25 mg p.o. twice daily He will need a cardiology follow-up soon post discharge (3) Pulmonary emphysema: History of COPD/emphysema, ongoing tobacco use No wheezing on admission, no acute exacerbation Continue home inhalers DuoNebs as needed for wheezing Patient down to around 6 cigarettes/day. Cessation encouraged, patient reports that he does not think he can get abstinent from cigarettes and has been smoking since he was a kid does recognize its potential health benefits. Will continue to attempt to reduce his smoking intake and follow-up as outpatient for this Nicotine patch ordered (4) Raynaud's disease: Raynaud's Calcium channel fam deferred as outpt due to orthostatic hypotension on his HF tx (5) UTI (urinary tract infection): Patient at increased risk of UTI due to SGLT2 treatment as endorsed dysuria intermittent over the last 2 to 3 days although not present day of admission. No fever/chills procalcitonin is negative and no leukocytosis. UA uninfected appearing, no abx indicated (6) DM2 (diabetes mellitus, type 2): Basal bolus SSI while inpatient, goal BSG [id number] Jardiance continued for GDMT HF, no UTI seen on UA Plan Discharge to home today Total Time Total Time Spent Total Time Spent (In Minutes): 35 Discharge Plan Discharge Items Patient Disposition: Home - Self-Care Reason For Visit: HYPOTENSION Discharge Diagnosis: Hypotension due to overmedication Activity: Resume your previous activity Non-emergency contact: Primary Care Provider Call non-emergency contact if: you have any medication questions and your symptoms worsen Follow-up/Referrals: Anna Devi MD [Primary Care Provider] - 06/06/23 10:00 am Diet: Heart Healthy Addtl Attending Provider Instructions: Advised to follow-up with her PCP in 1 week. You will need a work-up donr for unintentional weight loss. Advised to note that the dose of Coreg has been reduced to 6.25 mg twice a day Advised to note that Entresto has been discontinued Advised to follow-up with special assets officer in 1 week Pending Studies at Discharge: No Stand-Alone Forms: My [facility] VISup, Smoking Cessation Medications and DC Order Prescriptions: New carvedilol [Coreg] 6.25 mg tablet 6.25 mg PO BID 30 Days Qty: 60 0RF Rx Instructions: must administer with a meal/food Continued rabeprazole 20 mg tablet,delayed release (DR/EC) 20 mg PO DAILY Qty: 90 3RF atorvastatin 80 mg tablet 80 mg PO HS Qty: 90 3RF glimepiride 2 mg tablet 2 mg PO QAM Qty: 90 1RF paroxetine HCl 20 mg tablet 20 mg PO DAILY Qty: 90 1RF cholecalciferol (vitamin D3) 1,000 unit (25 mcg) tablet 1,000 units PO DAILY Qty: 90 Rx Instructions: unable to verify with pharmacy 05/25/23 multivitamin [Multiple Vitamins] tablet 1 tab PO DAILY Rx Instructions: unable to verify with pharmacy 05/25/23 guaifenesin [Mucinex] 600 mg tablet extended release 12hr 600 mg PO BID PRN (Reason: congestion) Qty: 120 1RF Rx Instructions: Take 1 tab p.o. twice a day for 7 days and then as needed unable to verify with pharmacy 05/25/23 albuterol sulfate [Ventolin HFA] 90 mcg/actuation HFA aerosol inhaler 2 inh INH Q6H PRN (Reason: shortness of breath or wheezing) Qty: 6.7 2RF Breztri Aerosphere 160-9-4.8 mcg/actuation HFA aerosol inhaler 2 inh inhalation BID Qty: 10.7 12RF mecobalamin (vitamin B12) 1,000 mcg lozenge 1,000 mcg PO DAILY Rx Instructions: unable to verify with pharmacy 05/25/23 allow to dissolve in mouth OR may chew lightly before swallowing Jardiance 10 mg tablet 10 mg PO DAILY Qty: 90 3RF aspirin 81 mg Tablet,Delayed Release (Dr/Ec) 81 mg PO DAILY Rx Instructions: unable to verify with pharmacy 05/25/23 Discontinued Entresto 24-26 mg tablet 1 tab PO BID Qty: 60 5RF carvedilol 25 mg tablet 25 mg PO BID Discharge Orders: Discharge Order (Routine); Ordered 05/30/23 Ordered By: Jignesh Cardoso/Other Patient Handouts: Managing Type 2 Diabetes Admission Data Admit Date/Time: 05/28/23 12:19 Attending Provider: Jignesh Crabtree Admit Provider: Eligio Adler Primary Care Provider: Anna Devi Other Providers: Eligio Adler; [facility] Other Interventions: Discharge Summary Assessment (RN) Last Done: 05/30/23 10:21 Coding Level of Care Code 83876 INP/OBS DISCH >30 MIN Diagnoses Hypotension I95.9 Hypotension type: unspecified hypotension type CHF (congestive heart failure) I50.9 Pulmonary emphysema J43.9 Raynaud's disease I73.00 UTI (urinary tract infection) N39.0 DM2 (diabetes mellitus, type 2) E11.9
== END 2023-05-30 12:09 | disposition home or self-care (01) | DRG 312 ==
LOC: 2N 11:40 → ED 11:40 → SUATTDRO 14:49 → 2N 15:59